=== PATIENT | female | born 1940 | race Caucasian/White ===

== ENCOUNTER 2016-10-28 08:29 | Inpatient (IN) ==
[2016-10-28] MEDS ORDERED: NITROGLYCERIN SL 0.4 MG TABLET SL ONE (09:05)
[2016-10-28] MEDS ORDERED: ENOXAPARIN 100 MG/ML SYRINGE SUBCUT STA (09:08)
[2016-10-28] MEDS ORDERED: NITROGLYCERIN SL 0.4 MG TABLET SL PRN (09:08)
[2016-10-28] MEDS ORDERED: ASPIRIN 325 MG TABLET PO STA (09:08)
[2016-10-28 09:40] LABS: Basophils # 0.1 10*3/uL (0.0-0.2); Eosinophils # 0.4 10*3/uL (0.0-0.87); Eosinophils % 6.7 % (0.00-10.9); Hematocrit 40.7 VOL% (35.7-47.0); Hemoglobin 13.1 GM/DL (12.0-16.0); Immature Granulocytes % 0.6 %; Immature Granulocytes Absolute 0.04 #; Lymphocytes # 1.1 10*3/uL (1.4-4.0); Mean Corpuscular HGB Conc 32.2 GM/DL (32-36); Mean Corpuscular Hemoglobin 30 PG (27-34); Mean Corpuscular Volume 92.7 FL (87-102); Mean Platelet Volume 10.9 FL (9.6-12.0); Monocytes # 0.6 10*3/uL (0.11-0.8); Monocytes % 8.9 % (1.7-12.7); Neutrophils # 4.3 10*3/uL (1.4-7.4); Neutrophils % 64.8 % (38.7-73.9); Platelet Count 299 T/CUMM (130-400); Red Blood Count 4.39 MC/CUMM (3.8-5.5); Red Cell Distribution Width 13.5 % (9.3-17.3); White Blood Count 6.6 T/CUMM (4-12)
--- NOTE | 2016-10-28 09:44 | XRay Report ---
XR chest 1V portable Indication: Chest pain. Comparison: None. Technique: Portable AP chest was performed. Findings: The heart size appears within normal limits. Brown elevation of the left diaphragm is demonstrated. Eventration of the right hemidiaphragm is suggested with density noted in the right cardiophrenic angle. Pulmonary vasculature demonstrates no specific abnormality. Hilar structures demonstrate fairly symmetric appearance. The lungs demonstrate coarsened interstitial markings which are nonspecific in appearance. Bones and soft tissues demonstrate no evidence of acute pathology. Impression: 1. There is no specific evidence of acute pathology. 10/28/2016 9:40 AM PROCEDURE INTERPRETED AT [facility] DEPARTMENT OF RADIOLOGY Final Report Signed by: Dr. Go Silver
[2016-10-28] MEDS ORDERED: ASPIRIN 325 MG TABLET ONE (10:02)
[2016-10-28] MEDS ORDERED: ENOXAPARIN 40 MG/0.4 ML SYRINGE ONE (10:02)
[2016-10-28 10:12] LABS: Bilirubin,Total 0.5 MG/DL (0.2-1.0); Calcium 9.5 MG/DL (8.5-10.1); Potassium 4.6 MMOL/L (3.5-5.1); Total Protein 6.7 G/DL (6.4-8.3)
[2016-10-28] MEDS ORDERED: POTASSIUM CHLORIDE 20 MEQ TABLET PO PRN (11:34)
[2016-10-28] MEDS ORDERED: MAGNESIUM SULF RIDER 4 GM in PREMIX 1 EACH IV PRN (11:34)
[2016-10-28] MEDS ORDERED: ONDANSETRON 4 MG/2 ML VIAL IV PRN (11:34)
[2016-10-28] MEDS ORDERED: MORPHINE 2 MG/1 ML SYRINGE IV PRN (11:34)
[2016-10-28] MEDS ORDERED: MAGNESIUM SULF RIDER 2 GM in PREMIX 1 EACH IV PRN (11:34)
--- NOTE | 2016-10-28 11:34 | Emergency Department Note ---
Adarsh Bautista Jamie, am scribing for, and in the presence of, Gabe Wagner MD 09:10. Bernard Bautista Doug C, MD, personally performed the services described in this documentation, ascribed by Brian Altamirano in my presence, and it is both accurate and complete . Arrival - Arrival Chief Complaint: Chest Pain Stated Complaint: Chest pains ED Nursing Triage Note: Pt c/o Chest pain (radiates through to her back and behind her ears/jaw) with some nausea started this am. Mode of Arrival: Ambulatory Limitations: No Limitations Source: Patient, RN Notes Reviewed - History of Present Illness HPI Narrative: Patient is a 75-year-old white female presents emergency room complaining of chest pain. By states this began yesterday she was eventually able to go off to sleep and when she woke up this morning that started again after she drank her coffee. By states the pain is substernal pressure that radiates to her jaws and into her back. She told with the pain started again at 615 this morning and was persisting when she arrived to the emergency room though much improved. She told me her pain was now 3 of 10 but it was 7 of 10 on this morning at 0615. She has no history of coronary artery disease but there is a family history of heart disease in her son who of a myocardial infarction. She denies any diaphoresis, nausea or vomiting. Patient states she does have significant problem with reflux. Onset (ago): hour(s) Consistency: constant Severity: moderate Allergies/Adverse Reactions: Allergies Allergy/AdvReac Type Severity Reaction Status Date / Time No Known Allergies Allergy Verified 10/28/16 08:32 Review of System - Review of System 12 point system: reviewed and no additional remarkable complaints except as stated - Review of System Constitutional: Absent: chills, diaphoresis, fever, weakness Eyes: Absent: vision change Respiratory: Absent: cough Cardiovascular: Present: chest pain Gastrointestinal: Present: nausea, vomiting. Absent: abdominal pain, diarrhea, constipation Musculoskeletal: Present: back pain (Radiates to ), other (Jaw pain). Absent: joint swelling Skin: Absent: rash, change in color Neurological: Absent: headache, weakness, numbness, confusion Hematological/Lymphatic: Absent: easy bleeding, easy bruising Medical,Surgical,& Family Hx - Medical History Cardio: History of: Hypertension, Valvular Heart Disease (Heart Murmur) - Surgical History Abdominal Surgeries: Surgical HX of: Appendectomy Reproductive Surgeries: Surgical HX of;: Hysterectomy - Family History Family History: Reports;: Family Heart Disease (Patient's son of a myocardial infarction) - Social History Smoking Status: Never smoker Exam Vital Signs: Vital Signs Temperature 97.4 F L 10/28/16 08:38 Pulse Rate 94 H 10/28/16 08:38 Respiratory Rate 18 10/28/16 09:48 Blood Pressure 220/100 10/28/16 08:38 O2 Sat by Pulse Oximetry 99 10/28/16 08:38 - General General appearance: alert, in no apparent distress - Head Head exam: Present: atraumatic, normocephalic, normal inspection - Eye Eye exam: Present: normal appearance, PERRL, EOMI - ENT ENT exam: Present: normal exam, normal oropharynx, mucous membranes moist - Neck Neck exam: Present: normal inspection, full ROM - Chest Chest inspection: Present: normal inspection, symmetric chest wall rise - Respiratory Respiratory exam: Present: normal lung sounds bilaterally. Absent: respiratory distress - Cardiovascular Cardiovascular exam: Present: regular rate, normal rhythm, murmur (3/6 systolic ejection murmur at left base) - Abdominal Exam Abdominal exam: Present: soft, normal bowel sounds - Extremities Exam Extremities exam: Present: normal inspection, full ROM - Neurological Exam Neurological exam: Present: alert, oriented X3, CN II-XII intact, reflexes normal - Psychiatric Psychiatric exam: Present: normal affect, normal mood - Skin Skin exam: Present: warm, dry, intact, normal color Course Course Narrative: Patient's clinical presentation, laboratory and radiographic findings were discussed with Dr. Yi. Patient will be admitted to the services manager account management for further evaluation. Results - Labs CBC & BMP: 10/28/16 08:59 10/28/16 08:59 Lab Results: I have reviewed the patients labs Labs: Laboratory Tests 10/28/16 08:59 Lymph % (Auto) 17.0 L Baso % (Auto) 2.0 H Lymph # (Auto) 1.1 L - EKG EKG results: interpreted by AMBERLY, sinus rhythm (94 bpm), no acute changes - Diagnostic Findings Procedure: Chest x-ray: report reviewed by me (There is no specific evidence of acute pathology. ) Disposition Clinical Impression: Unstable angina Case discussed with: patient, patient's family Disposition: Still a Patient Condition: Guarded Time of Disposition: 11:33
[2016-10-28] MEDS ORDERED: cloNIDine 0.1 MG TABLET PO PRN (14:25)
[2016-10-28] MEDS ORDERED: ALUMINUM/MAGNES/SIMETH MAX STR 30 ML UDCUP PO PRN (15:17)
[2016-10-28] MEDS: METOPROLOL TARTRATE 25 MG TABLET PO SCH ×2 (15:21→21:20)
[2016-10-28] MEDS: DEXTROSE 5% NACL 0.45% 1,000 ML IV SCH (15:24)
--- NOTE | 2016-10-28 15:28 | EKG Report ---
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
[2016-10-28] MEDS: ACETAMINOPHEN 325 MG TABLET PO PRN (15:30)
[2016-10-28] MEDS: ENOXAPARIN 40 MG/0.4 ML SYRINGE SUBCUT SCH ×2 (15:33→23:45)
[2016-10-28] MEDS ORDERED: ATORVASTATIN 20 MG TABLET PO SCH (21:00)
[2016-10-28] MEDS: BENAZEPRIL 10 MG TABLET PO SCH (21:19)
[2016-10-28] MEDS: PANTOPRAZOLE 40 MG TABLET PO SCH (21:20)
[2016-10-28] MEDS: amLODIPine 2.5 MG TABLET PO SCH (21:20)
[2016-10-29] MEDS: ACETAMINOPHEN 325 MG TABLET PO PRN ×2 (03:43→09:53)
[2016-10-29] MEDS: DEXTROSE 5% NACL 0.45% 1,000 ML IV SCH ×3 (05:23→13:25)
--- NOTE | 2016-10-29 08:34 | EKG Report ---
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 Electronically Signed On 10-29-16 11:38:48 CDT by JESÚS HOLLAND [id number]
--- NOTE | 2016-10-29 08:36 | EKG Report ---
Stationary ECG Study 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
--- NOTE | 2016-10-29 10:50 | CT Report ---
History: Chest pain, extending into left shoulder and left neck Date: 10/29/2016 Study: CT angiogram chest with IV contrast Comparison exam: No previous Spiral CT sections were obtained through the lungs following the IV administration of 80 mL of Omnipaque 350 without immediate complication. In addition to multiplanar reconstruction images, 3-D images were also generated, archived, and analyzed. The CT exam was performed using one or more of the following dose reduction techniques: Automated exposure control, adjustment of the mA and/or kV according to patient size, or use of iterative reconstruction technique. Findings: There is no focal aneurysm or dissection of the thoracic aorta. There is moderate aortic arch calcification. There is mild to moderate coronary artery calcification with involvement of the left main coronary artery. There is normal arch anatomy. There is mild less than 30% narrowing of the origins of the left common and left subclavian arteries. There is an outpouching of contrast compatible with penetrating ulcer formation anterior left lateral to the origin of the left subclavian artery, with a 6 mm x 3 mm area of contrast opacified ulcer formation. There is no discrete filling defect within the pulmonary arterial tree to suggest acute pulmonary embolic disease. There is no mediastinal mass or mediastinal lymphadenopathy otherwise. There is no pleural or pericardial effusion. There are some minimal scattered changes of centrilobular emphysema. There is no confluent infiltrate or discrete pulmonary mass. There is moderate elevation of the left hemidiaphragm, thought to be related to diaphragmatic eventration. There is no focal hernia of the left hemidiaphragm. There is a focal hernia of the right hemidiaphragm anteriorly and medially containing a small amount of protruding liver. Impression: No thoracic aortic aneurysm or dissection. 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 Agata Mcneal
[2016-10-29] MEDS ORDERED: ALPRAZolam 0.25 MG TABLET PO PRN (12:01)
[2016-10-29] MEDS: LABETALOL 20 MG/4 ML SYRINGE IV PRN (12:17)
[2016-10-29] MEDS: ENOXAPARIN 40 MG/0.4 ML SYRINGE SUBCUT SCH (13:14)
[2016-10-29] MEDS: ASPIRIN EC 81 MG TABLET PO SCH (13:43)
[2016-10-29] MEDS: PANTOPRAZOLE 40 MG TABLET PO SCH ×2 (13:43→20:34)
[2016-10-29] MEDS: METOPROLOL TARTRATE 25 MG TABLET PO SCH (13:43)
[2016-10-29] MEDS: MAGNESIUM HYDROXIDE SUSP 30 ML UDCUP PO PRN ×2 (14:10→20:34)
[2016-10-29] MEDS: amLODIPine 2.5 MG TABLET PO SCH (20:34)
[2016-10-29] MEDS: BENAZEPRIL 10 MG TABLET PO SCH (20:36)
[2016-10-29] MEDS: METOPROLOL TARTRATE 100 MG TABLET PO SCH (20:36)
[2016-10-29] MEDS: ATORVASTATIN 40 MG TABLET PO SCH (20:45)
--- NOTE | 2016-10-29 21:12 | Cardiothoracic Consult ---
Assessment and Plan - Time spent with patient Time spent with patient: Greater than 30 minutes (1) Chest pain Status: Acute Assessment and plan: 75-year-old female who was noted to have chest pain. I personally reviewed the CT scan of the chest which showed descending aortic intimal ulceration over small area distal to the origin of the left subclavian artery. There was no aneurysm noted. Extensive calcifications were noted in the descending aorta as well as the origins of the left main and the right main coronary arteries. No dissection in the ascending, arch or descending aorta. These findings were discussed with the patient and was Dr. Banegas and in regards to the aorta the management would be to follow-up with a CT angiogram of the chest in 6 months. Signs and symptoms of aortic dissection were discussed extensively with the patient and she was advised to vigilantly be aware of any change in her status. It is mandatory that the patient would get her blood pressure under control preferably below 130 systolic to prevent dissection. I will defer this management to Dr. Banegas. I also discussed the calcifications of the right and left main coronary arteries that I noted on the CT angiogram with Dr. Banegas. However since the patient does not have any EKG changes or troponin rise he feels that it is unlikely to be the source of her symptoms. I will also defer this management to Dr. Banegas. Current Visit: Yes History of Present Illness - Data of Consult Patient: new to practice Consult date: 10/29/16 Requesting Physician: Mino Banegas - Consult Narrative Reason for consult: Aortic intimal ulceration History of present illness: Ms. Everett is a 75 year old female who has been having increasing shortness of breath and over the past few days she has been having increasing substernal left -sided chest pain that has been radiating to the left shoulder. The patient however continues to be active she used to walk 6 miles a day which recently her activity decreased only to 2 miles a day. She was being followed for mild aortic insufficiency, mitral insufficiency and tricuspid insufficiency by Dr. Soni. She came to the ER with increasing chest pain for which she received a CT angiogram of the chest showing possible descending aortic intimal ulceration. The patient did not show any EKG changes neither any increase in her troponin level. Of note she denies any back pain, interscapular pain. She was noted to have hypertensive urgency while being evaluated with systolic blood pressure above 200. CC: Mino Banegas MD - Home Medications and Allergies Home Medications: Home Medications Medication Instructions Recorded Confirmed Type Aspirin EC Tab 81 mg PO DAILY 10/28/16 10/28/16 History Atorvastatin [Lipitor] 20 mg PO BEDTIME 10/28/16 10/28/16 History Benazepril HCl 20 mg PO BEDTIME 10/28/16 10/28/16 History Esomeprazole Magnesium [Nexium] 40 mg PO BID 10/28/16 10/28/16 History Pantoprazole Tab [Protonix Tab] 40 mg PO BID 10/28/16 10/28/16 History amLODIPine [Norvasc] 2.5 mg BEDTIME 10/28/16 10/28/16 History cloNIDine TAB [Catapres Tab] 0.1 mg PO DAILY PRN 10/28/16 10/28/16 History Allergies/Adverse Reactions: Allergies Allergy/AdvReac Type Severity Reaction Status Date / Time No Known Allergies Allergy Verified 10/28/16 08:32 12 point system: reviewed and no additional remarkable complaints except as stated (HPI) Medical,Surgical,& Family Hx - Medical History Cardio: History of: Hypertension, Valvular Heart Disease (Heart Murmur) Neurology: History of: Cerebral Hemorrhage Gastrointestinal: History of: GERD - Surgical History Neurologic Surgeries: Surgical HX of: Cerebral Hemorrhage Abdominal Surgeries: Surgical HX of: Appendectomy Reproductive Surgeries: Surgical HX of;: Hysterectomy (PARTIAL) - Family History Family History: Reports;: Family Cancer (MOTHER- BREAST CA), Family Heart Disease (Patient's son of a myocardial infarction) - Social History Smoking Status: Never smoker Frequency of Alcohol Use: None Type of Drug Use: None Physical Examination Vital Signs Temp Pulse Resp BP Pulse Ox 97.4 F L 94 H 18 220/100 99 10/28/16 08:38 10/28/16 08:38 10/28/16 08:38 10/28/16 08:38 10/28/16 08:38 General: Present: Appears Well HEENT: Present: PERRL Neck: Present: Supple Neck Cardiac: Present: Reg Rate and Rhythm Lungs: Present: Normal Exam Neuro: Present: Cranial Nerve 2-12 Intact Abdomen: Present: Soft, Active Bowel Sounds Skin: Present: Clear Result/EKG - Labs CBC & BMP: 10/28/16 08:59 10/28/16 08:59
[2016-10-30 05:59] LABS: Basophils # 0.1 10*3/uL (0.0-0.2); Basophils % 1.3 % (0.0-0.8); Eosinophils # 0.6 10*3/uL (0.0-0.87); Eosinophils % 8.1 % (0.00-10.9); Hematocrit 35.4 VOL% (35.7-47.0); Hemoglobin 11.2 GM/DL (12.0-16.0); Immature Granulocytes % 0.4 %; Immature Granulocytes Absolute 0.03 #; Lymphocytes # 1.2 10*3/uL (1.4-4.0); Mean Corpuscular HGB Conc 31.6 GM/DL (32-36); Mean Corpuscular Hemoglobin 29 PG (27-34); Mean Corpuscular Volume 92.7 FL (87-102); Mean Platelet Volume 10.7 FL (9.6-12.0); Monocytes # 0.8 10*3/uL (0.11-0.8); Monocytes % 11.9 % (1.7-12.7); Neutrophils # 4.2 10*3/uL (1.4-7.4); Neutrophils % 60.3 % (38.7-73.9); Platelet Count 273 T/CUMM (130-400); Red Blood Count 3.82 MC/CUMM (3.8-5.5); Red Cell Distribution Width 13.7 % (9.3-17.3); White Blood Count 6.9 T/CUMM (4-12)
[2016-10-30 06:38] LABS: Calcium 8.8 MG/DL (8.5-10.1); Magnesium 2.7 MG/DL (1.8-2.4); Osmolality,Calculated 290.7 MOS/KG (273-304); Potassium 4.6 MMOL/L (3.5-5.1)
[2016-10-30] MEDS: LABETALOL 20 MG/4 ML SYRINGE IV PRN (06:41)
[2016-10-30] MEDS: MAGNESIUM HYDROXIDE SUSP 30 ML UDCUP PO PRN (08:16)
[2016-10-30] MEDS: ASPIRIN EC 81 MG TABLET PO SCH (08:16)
[2016-10-30] MEDS: PANTOPRAZOLE 40 MG TABLET PO SCH ×2 (08:16→20:49)
[2016-10-30] MEDS: METOPROLOL TARTRATE 100 MG TABLET PO SCH ×2 (08:16→20:49)
[2016-10-30] MEDS: hydrALAZINE 25 MG TABLET PO SCH ×3 (09:10→20:47)
[2016-10-30] MEDS: ACETAMINOPHEN 325 MG TABLET PO PRN ×2 (11:43→20:58)
--- NOTE | 2016-10-30 12:34 | Cardiology History & Physical ---
Nikolas Bautista April RN, am scribing for, and in the presence of, Mino Banegas MD 12 :34. Assessment and Plan - Time spent with patient Time spent with patient: Greater than 30 minutes (Assessment, planning, documentation, medication review) (1) Chest pain Status: Acute Assessment and plan: This is a late note, as the EMR did not save my admission note from yesterday. 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 Thoracic surgery consult recommended medical management. She did not have ACS, despite blood pressure up to 220, although has severe coronary calcifications on CT scan. -We will continue strict blood pressure control, monitor in the ICU. 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 Everett is a 75 year old female who is routinely followed by Dr. Soni with history of heart murmur, hypertension, and dyslipidemia. Echo done March 28, 2016 with ejection fraction 65%, 1+ mitral regurgitation, 1+ aortic regurgitation, and 1-2+ tricuspid regurgitation. Surgical history includes bilateral cataracts, appendectomy, and hysterectomy. Family history significant for father with CVA, mother with cancer hypertension, and son who of an NC. She reports she does not smoke, stating she quit about 30 years ago. She lives at home with her and is very active, walking 6-12 miles a day. Ms. Everett tells me for the last 5-6 days she has been more tired than usual. 2 days ago she woke up and walk 6 miles and then ate breakfast. After breakfast she had planned to walk 4 miles but she became more fatigued so she only walked 2 miles. The same morning she began having chest pain that she describes as an ache and burning across her chest to her left shoulder and up into her neck. She reports the pain comes and goes. Yesterday morning she woke up feeling fine and developed this pain after getting up. Yesterday she did not walk because she did not feel well. She does not think the pain is associated with her walking. She rates the pain yesterday as a 3 or 4 on a scale of 1-10. She said it was relieved by the time skin to the emergency department, she thinks it was relieved with Advil. She does report the last several days that she has belched a lot, but did not notice this relieving the pain. She denies any associated shortness of breath, diaphoresis, nausea and vomiting with the pain. She saw Dr. Soni in the office on September 27 of this year and was reporting some left-sided chest pain that was a burning pain at that time. She says the pain this weekend has been different from that, but she cannot tell me how. Currently she is sitting up in chair in no acute distress and is pain-free. EKG showed sinus rhythm with heart rate of 82. manager research development currently shows sinus rhythm with heart rates in the 60s. O2 sat is 97% on room air. Troponin has been negative 3, labs are unremarkable. Home Medications Medication Instructions Recorded Confirmed Type Aspirin EC Tab 81 mg PO DAILY 10/28/16 10/28/16 History Atorvastatin [Lipitor] 20 mg PO BEDTIME 10/28/16 10/28/16 History Benazepril HCl 20 mg PO BEDTIME 10/28/16 10/28/16 History Esomeprazole Magnesium [Nexium] 40 mg PO BID 10/28/16 10/28/16 History Pantoprazole Tab [Protonix Tab] 40 mg PO BID 10/28/16 10/28/16 History amLODIPine [Norvasc] 2.5 mg BEDTIME 10/28/16 10/28/16 History cloNIDine TAB [Catapres Tab] 0.1 mg PO DAILY PRN 10/28/16 10/28/16 History Allergies Allergy/AdvReac Type Severity Reaction Status Date / Time No Known Allergies Allergy Verified 10/28/16 08:32 - Constitutional Constitutional: Present: as per HPI - EENT Eyes: Present: requires corrective lense Ears: Absent: decreased hearing, ear pain, tinnitus Nose, mouth and throat: Present: headache(s). Absent: dysphagia, epistaxis, neck pain, sore throat - Cardiovascular Cardiovascular: Present: chest pain at rest, chest pain with activity, radiating jaw, neck or arm pain, lightheadedness, palpitations. Absent: diaphoresis, dyspnea, dyspnea on exertion, edema, orthopnea - Respiratory Respiratory: Absent: cough, dyspnea, hemoptysis, dyspnea on exertion, wheezing - Gastrointestinal Gastrointestinal: Present: constipation. Absent: abdominal pain, diarrhea, hematemesis, hematochezia, melena, nausea, vomiting - Genitourinary Genitourinary: Absent: dysuria, hematuria - Musculoskeletal Musculoskeletal: Present: limited range of motion. Absent: back pain - Neurological Neurological: Present: dizziness, headache(s). Absent: abnormal gait, abnormal speech, frequent falls, syncope - Psychiatric Psychiatric: Absent: anxiety, depression - Endocrine Endocrine: Present: fatigue - Hematologic/Lymphatic Hematologic/Lymphatic: Present: easy bruising Medical,Surgical,& Family Hx - Medical History Cardio: History of: Hypertension, Valvular Heart Disease (Heart Murmur) Neurology: History of: Cerebral Hemorrhage Gastrointestinal: History of: GERD - Surgical History Neurologic Surgeries: Surgical HX of: Cerebral Hemorrhage Abdominal Surgeries: Surgical HX of: Appendectomy Reproductive Surgeries: Surgical HX of;: Hysterectomy (PARTIAL) - Family History Family History: Reports;: Family Cancer (MOTHER- BREAST CA), Family Heart Disease (Patient's son of a myocardial infarction), Family Stroke (Father) - Social History Smoking Status: Former smoker (Quit 30 years ago) Have you smoked in the last 12 months: No Frequency of Alcohol Use: None Type of Drug Use: None Marital Status: Lives With:: Spouse Functional capacity: independent ambulation Cardiology Physical Exam - Constitutional Vitals: Vital Signs Temp Pulse Resp BP Pulse Ox 97.8 F 63 20 146/65 97 10/29/16 08:00 10/29/16 08:00 10/29/16 08:00 10/29/16 08:00 10/29/16 08:00 Intake and Output 10/28/16 10/29/16 10/29/16 22:59 06:59 14:59 Intake Total 400 / 400 0 / 0 Balance 400 / 400 0 / 0 Intake: Oral 400 / 400 0 / 0 Other: # Voids 2 2 Weight 99 lb General appearance: normal weight, no acute distress - Head Head exam: Absent: abrasion, contusion, laceration - Eye Eye exam: Present: EOMI Pupils: Present: DEBO - Neck Neck exam: Absent: tenderness - Respiratory Respiratory exam: Present: clear to auscultation bilaterally. Absent: chest wall tenderness, decreased breath sounds - Cardiovascular Cardiovascular exam: Present: regular rate and rhythm, systolic murmur. Absent : carotid bruit - GI/Abdominal GI/Abdominal exam: Present: normal bowel sounds, soft. Absent: distended - Back Exam Back exam: Absent: muscle spasm, vertebral tenderness - Neurological Exam Neurological exam: Present: alert, oriented X3 - Psychiatric Psychiatric exam: Present: normal affect, normal mood - Skin Skin exam: Present: warm, dry Result/EKG - Labs CBC & BMP: 10/30/16 04:52 10/30/16 04:52 Lab Results: I have reviewed the past 24 hour labs Labs: Laboratory Results - last 24 hr 10/28/16 10/28/16 12:45 15:07 Troponin I < 0.015 < 0.015 - EKG EKG results: interpreted by me EKG shows: sinus rhythm Bassam Bautista Attila, MD, personally performed the services described in this documentation, ascribed by Jessica Connor RN in my presence, and it is both accurate and complete .
--- NOTE | 2016-10-30 12:36 | Cardiology Progress Note ---
Nikolas Bautista April RN, am scribing for, and in the presence of, Mino Banegas MD 12 :32. 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 Hypertensive urgency, hyperlipidemia, CAD. -Continue metoprolol 100 mg twice daily, increase amlodipine to 10 mg daily. -Continue benazepril. -Continue aspirin. -Continue high-dose statin. -If blood pressure remains well controlled, transfer to telemetry. 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 Everett is seen today housed in the intensive care unit. She is sitting up in chair eating breakfast in no acute distress. She reports having some chest pain/burning sensation off and on throughout the night. She denies shortness of breath, palpitations, or dizziness. She was seen yesterday in consultation by Dr. Watson regarding aortic ulceration found on CTA of the chest. He thought it did not require surgical intervention and recommended she be medically managed and follow-up with CT angiogram of the chest in 6 months. She is currently on Lotensin 20 mg p.o. nightly, Lopressor 100 mg p.o. twice daily, and Norvasc 2.5 mg p.o. nightly. She is also requiring the use of labetalol IV as needed. Blood pressure this morning was 195/79, she was given labetalol IV, current blood pressure 168/79. monitoring and evaluation advisor currently shows sinus rhythm heart rates in the 70s, O2 sat 100% on room air. Exam (Progress Note) - Constitutional Vitals: Period Temp Pulse Resp BP Sys/Wells Pulse Ox Last 24 Hr 98.0 F-98.3 F 60-85 12-25 115-209/52-84 96-99 General appearance: no acute distress, under weight - Head Head exam: Absent: abrasion, hematoma - Eye Eye exam: Absent: periorbital swelling, laceration to eyelids - Respiratory Respiratory exam: Present: clear to auscultation bilaterally. Absent: accessory muscle use, chest wall tenderness - Cardiovascular Cardiovascular exam: Present: regular rate and rhythm, systolic murmur - GI/Abdominal GI/Abdominal exam: Present: normal bowel sounds, soft. Absent: distended, tenderness - Extremities Exam Extremities exam: Absent: edema - Neurological Exam Neurological exam: Present: alert, oriented X3 - Psychiatric Psychiatric exam: Present: normal affect, normal mood - Skin Skin exam: Present: warm, dry Result/EKG - Labs CBC & BMP: 10/30/16 04:52 10/30/16 04:52 Lab Results: I have reviewed the past 24 hour labs Labs: Laboratory Results - last 24 hr 10/30/16 10/30/16 04:52 04:52 WBC 6.9 RBC 3.82 Hgb 11.2 L Hct 35.4 L MCV 92.7 MCH 29 MCHC 31.6 L RDW 13.7 Plt Count 273 MPV 10.7 Neut % (Auto) 60.3 Lymph % (Auto) 18.0 L [place] % (Auto) 11.9 Eos % (Auto) 8.1 Baso % (Auto) 1.3 H Neut # (Auto) 4.2 Lymph # (Auto) 1.2 L [place] # (Auto) 0.8 Eos # (Auto) 0.6 Baso # (Auto) 0.1 Immature Gran % 0.4 Nucleated RBC % 0.0 Immature Gran # 0.03 Nucleated RBCs # 0.00 Sodium 145 Potassium 4.6 Chloride 108 H Carbon Dioxide 30 Anion Gap 11.6 BUN 22 H Creatinine 0.90 GFR Calculation 49 BUN/Creatinine Ratio 24.00 H Glucose 90 Calculated Osmolality 290.7 Calcium 8.8 Magnesium 2.7 H - EKG EKG results: interpreted by me EKG shows: sinus rhythm Bassam Bautista Attila, MD, personally performed the services described in this documentation, ascribed by Jessica Connor RN in my presence, and it is both accurate and complete .
[2016-10-30] MEDS: amLODIPine 10 MG TABLET PO SCH (13:20)
[2016-10-30] MEDS: LACTULOSE 20 GM/30 ML UDCUP PO PRN (20:47)
[2016-10-30] MEDS: BENAZEPRIL 10 MG TABLET PO SCH (20:48)
[2016-10-30] MEDS: ATORVASTATIN 40 MG TABLET PO SCH (20:49)
[2016-10-31 06:15] LABS: Basophils # 0.1 10*3/uL (0.0-0.2); Basophils % 1.5 % (0.0-0.8); Eosinophils # 0.5 10*3/uL (0.0-0.87); Eosinophils % 7.6 % (0.00-10.9); Hematocrit 37.4 VOL% (35.7-47.0); Hemoglobin 11.9 GM/DL (12.0-16.0); Immature Granulocytes % 0.3 %; Immature Granulocytes Absolute 0.02 #; Lymphocytes # 1.2 10*3/uL (1.4-4.0); Lymphocytes % 18.3 % (21.3-54.2); Mean Corpuscular HGB Conc 31.8 GM/DL (32-36); Mean Corpuscular Hemoglobin 30 PG (27-34); Mean Platelet Volume 11.8 FL (9.6-12.0); Monocytes # 0.7 10*3/uL (0.11-0.8); Monocytes % 10.4 % (1.7-12.7); Neutrophils # 4.1 10*3/uL (1.4-7.4); Neutrophils % 61.9 % (38.7-73.9); Platelet Count 166 T/CUMM (130-400); Red Blood Count 4.02 MC/CUMM (3.8-5.5); Red Cell Distribution Width 13.9 % (9.3-17.3); White Blood Count 6.6 T/CUMM (4-12)
[2016-10-31 06:39] LABS: Calcium 9.1 MG/DL (8.5-10.1); Magnesium 2.5 MG/DL (1.8-2.4); Osmolality,Calculated 287.8 MOS/KG (273-304); Potassium 4.7 MMOL/L (3.5-5.1)
[2016-10-31 06:49] LABS: Hypochromasia 1+
[2016-10-31 06:50] LABS: Ovalocytes Slight; Platelet Estimate Normal
[2016-10-31] MEDS: amLODIPine 10 MG TABLET PO SCH (10:33)
[2016-10-31] MEDS: ASPIRIN EC 81 MG TABLET PO SCH (10:34)
[2016-10-31] MEDS: hydrALAZINE 25 MG TABLET PO SCH ×3 (10:34→20:28)
[2016-10-31] MEDS: PANTOPRAZOLE 40 MG TABLET PO SCH ×2 (10:34→20:28)
[2016-10-31] MEDS: METOPROLOL TARTRATE 100 MG TABLET PO SCH ×2 (10:34→20:28)
[2016-10-31] MEDS: ACETAMINOPHEN 325 MG TABLET PO PRN ×2 (10:42→16:28)
[2016-10-31] MEDS ORDERED: BENAZEPRIL 40 MG TABLET PO SCH (18:03)
--- NOTE | 2016-10-31 18:07 | Cardiology Progress Note ---
Nikolas Bautista April RN, am scribing for, and in the presence of, Mino Banegas MD 18 :04. 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 Hypertensive urgency, hyperlipidemia, CAD. -Continue metoprolol 100 mg twice daily, amlodipine to 10 mg daily. Increase benazepril to 40 mg daily. -If able, plan to wean off hydralazine, she may have severe CAD, based on amount of calcification on CT scan. -Continue aspirin. -Continue high-dose statin. -Xanax as needed for anxiety. -Blood pressure better controlled, but still elevated. -Chest pain resolved. If stable, discharge home tomorrow, follow-up with Dr. Soni in 1 week. She also requested second opinion for cardiothoracic surgical evaluation, will need to follow-up with Dr. Acosta. -We had a long discussion again about her cardiovascular pathology, need for intensive risk factor modification. 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 Everett is seen today housed on the telemetry unit. She is sitting up in chair in no acute distress. She continues to have some back and shoulder pain off and on. She denies shortness of breath, palpitations, or dizziness. She is very anxious about her new diagnosis and has been questions. Dr. Banegas spoke with her extensively about her aortic ulceration and answered all her questions. Her blood pressure was better during the night, but late this morning it was 171/75. She has been very anxious this morning and the blood pressure pressure could be due to her anxiety. Labs today are unremarkable. 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 If pressure remains stable she can be discharged home tomorrow. She would like a follow-up appointment to see Dr. Acosta for a second opinion, this will be scheduled. We will schedule an appointment for her to see Dr. Soni in the office next week. Exam (Progress Note) - Constitutional Vitals: Period Temp Pulse Resp BP Sys/Wells Pulse Ox Last 24 Hr 97.3 F-98.6 F 62-78 15-25 119-171/54-75 95-99 Exam: General appearance: no acute distress, under weight - Head Head exam: Absent: abrasion, hematoma - Eye Eye exam: Absent: periorbital swelling, laceration to eyelids - Respiratory Respiratory exam: Present: clear to auscultation bilaterally. Absent: accessory muscle use, chest wall tenderness - Cardiovascular Cardiovascular exam: Present: regular rate and rhythm, systolic murmur - GI/Abdominal GI/Abdominal exam: Present: normal bowel sounds, soft. Absent: distended, tenderness - Extremities Exam Extremities exam: Absent: edema - Neurological Exam Neurological exam: Present: alert, oriented X3 - Psychiatric Psychiatric exam: Present: normal affect, normal mood - Skin Skin exam: Present: warm, dry Result/EKG - Labs CBC & BMP: 10/31/16 05:33 10/31/16 05:33 Lab Results: I have reviewed the past 24 hour labs Labs: Laboratory Results - last 24 hr 10/31/16 10/31/16 05:33 05:33 WBC 6.6 RBC 4.02 Hgb 11.9 L Hct 37.4 MCV 93.0 MCH 30 MCHC 31.8 L RDW 13.9 Plt Count 166 D MPV 11.8 Neut % (Auto) 61.9 Lymph % (Auto) 18.3 L [place] % (Auto) 10.4 Eos % (Auto) 7.6 Baso % (Auto) 1.5 H Neut # (Auto) 4.1 Lymph # (Auto) 1.2 L [place] # (Auto) 0.7 Eos # (Auto) 0.5 Baso # (Auto) 0.1 Immature Gran % 0.3 Nucleated RBC % 0.0 Immature Gran # 0.02 Nucleated RBCs # 0.00 Platelet Estimate Normal Hypochromasia 1+ Ovalocytes Slight Morphology Comment Sodium 144 Potassium 4.7 Chloride 109 H Carbon Dioxide 25 Anion Gap 14.7 BUN 18 Creatinine 0.90 GFR Calculation 49 BUN/Creatinine Ratio 20.00 Glucose 91 Calculated Osmolality 287.8 Calcium 9.1 Magnesium 2.5 H - EKG EKG results: interpreted by me EKG shows: sinus rhythm Specialty Discharge - Follow Up or Referrals Follow up with: Farhat Acosta MD [Physician] - 11/06/16 9:30 am I, Mino Banegas MD, personally performed the services described in this documentation, ascribed by Jessica Connor RN in my presence, and it is both accurate and complete 807 .
[2016-10-31] MEDS: LACTULOSE 20 GM/30 ML UDCUP PO PRN (19:00)
[2016-10-31] MEDS: ATORVASTATIN 40 MG TABLET PO SCH (20:28)
[2016-11-01 06:46] LABS: Basophils # 0.1 10*3/uL (0.0-0.2); Basophils % 1.3 % (0.0-0.8); Eosinophils # 0.6 10*3/uL (0.0-0.87); Eosinophils % 7.9 % (0.00-10.9); Hematocrit 36.4 VOL% (35.7-47.0); Hemoglobin 11.7 GM/DL (12.0-16.0); Immature Granulocytes % 0.9 %; Immature Granulocytes Absolute 0.07 #; Lymphocytes # 1.6 10*3/uL (1.4-4.0); Lymphocytes % 20.8 % (21.3-54.2); Mean Corpuscular HGB Conc 32.1 GM/DL (32-36); Mean Corpuscular Hemoglobin 30 PG (27-34); Mean Corpuscular Volume 94.1 FL (87-102); Mean Platelet Volume 10.4 FL (9.6-12.0); Monocytes # 0.8 10*3/uL (0.11-0.8); Monocytes % 10.8 % (1.7-12.7); Neutrophils # 4.5 10*3/uL (1.4-7.4); Neutrophils % 58.3 % (38.7-73.9); Platelet Count 271 T/CUMM (130-400); Red Blood Count 3.87 MC/CUMM (3.8-5.5); Red Cell Distribution Width 13.5 % (9.3-17.3); White Blood Count 7.7 T/CUMM (4-12)
[2016-11-01 07:52] LABS: Calcium 9.1 MG/DL (8.5-10.1); Magnesium 2.3 MG/DL (1.8-2.4)
[2016-11-01] MEDS: ACETAMINOPHEN 325 MG TABLET PO PRN (09:48)
[2016-11-01] MEDS: PANTOPRAZOLE 40 MG TABLET PO SCH (09:48)
[2016-11-01] MEDS: amLODIPine 10 MG TABLET PO SCH (09:48)
[2016-11-01] MEDS: ASPIRIN EC 81 MG TABLET PO SCH (09:49)
[2016-11-01] MEDS: METOPROLOL TARTRATE 100 MG TABLET PO SCH (09:49)
[2016-11-01] MEDS: hydrALAZINE 25 MG TABLET PO SCH (09:49)
[2016-11-01 11:32] VITALS: BP 127/58
--- NOTE | 2016-11-01 12:18 | Discharge Summary ---
Addendum entered and electronically signed by Mino Banegas MD 11/01/16 12:02: Interviewed and examined the patient personally. Discussed findings with the nurse practitioner. I agree with the assessment and plan, with additions as below. Patient was admitted with chest pain, hypertensive emergency, was diagnosed with a penetrating aortic ulcer. She also has severe coronary calcification on the CT scan. She did not have cardiac injury. Blood pressure regimen was adjusted, CT surgery consult recommended conservative management. 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 Beltran next week. Recheck BMP/ magnesium in 1 week. We had a long discussion about risk factor modification. Given her severe coronary calcification, ischemic evaluation may be pursued, once her blood pressure control is stable. Original Note: Nikolas Bautista April, RN, am scribing for, and in the presence of, Marlin Sosa NP 09:10. Hospital Course - Hospital Course Hospital Course: Ms. Everett is a 75 year old female who is routinely followed by Dr. Soni with history of heart murmur, hypertension, and dyslipidemia. Echo done March 28, 2016 with ejection fraction 65%, 1+ mitral regurgitation, 1+ aortic regurgitation, and 1-2+ tricuspid regurgitation. Surgical history includes bilateral cataracts, appendectomy, and hysterectomy. Family history significant for father with CVA, mother with cancer and hypertension, and son who of an LA. She reports she does not smoke, stating she quit about 30 years ago. She lives at home with her and is very active, walking 6-12 miles a day. She presented to the hospital with complaints of being more tired than usual for about a week and 2 day onset of chest pain that she described as an aching/ burning sensation across her chest to her left shoulder and into her neck. She did not have any EKG changes or elevation in her troponin. CTA of the chest showed penetrating aortic ulcer. Dr. Watson saw the patient in consultation. He did not think she had a surgical intervention and recommended medical management as well as follow-up with a CT angiogram of the chest in 6 months. She was very hypertensive when she came in with blood pressure 220/ 100. We have adjusted her medications for optimal blood pressure control. Her blood pressure today are much better, and she has not required any IV labetalol in more than 48 hours. She has also been very anxious with this new diagnosis and we have added Xanax as needed. She continues to have some pain across her left shoulder, reports this is slightly better. She denies any shortness of breath, palpitations, or dizziness. Her blood pressures throughout the night have been much better, is 137/51 this morning. monitoring specialist currently shows sinus rhythm with heart rates in the 60s. Labs are unremarkable. We will recheck a BMP and mag with Dr. Soni next week since we are sending her home on hydralazine. Ms. Everett has reached maximum benefit from hospitalization and will be discharged home today. We will schedule her to see Dr. Soni next week with a BMP and mag. She has requested a second surgical opinion from Dr. Acosta. He is on vacation this week so we will get an appointment scheduled for her to see him next week. We have discussed with patient the importance of blood pressure and cholesterol control in the presence of this ulcer. We discussed the changes in her medicine which include the following: Increased benazepril to 40 mg nightly Added Xanax 0.25 every 6 hours as needed Added Lopressor 100 p.o. twice daily Increased amlodipine to 10 mg daily Added hydralazine 25 mg 3 times daily Increased Lipitor to 40 mg nightly Added Nitrostat 0.4 sublingual as needed chest pain She will continue her home dosage of baby aspirin and Protonix - Time spent with patient Time with patient DS: Greater than 30 minutes Diagnosis - Discharge Diagnosis (1) Chest pain Status: Acute (2) Hypertension Status: Chronic (3) Dyslipidemia Status: Chronic (4) Heart murmur, systolic Status: Chronic Specialty Discharge - Follow Up or Referrals Follow up with: Farhat Acosta MD [Physician] - 11/06/16 9:30 am Robin Soni MD [Physician] - 1 Week (BMP Mag) Discharge Plan - Discharge Data Disposition: Disch To Home/Self Care Condition at Discharge: Stable Discharge Diet: heart healthy Activity: increase activity as tolerated Hygiene: no restrictions Weight Bearing at Discharge: weight bear as tolerated Driving: no restrictions Contact your physician if you experience:: fever over 101, Difficulty voiding, Redness or swelling, Nausea/Vomiting, Shortness of breath, Bleeding, pain uncontrolled by pain medications - Discharge Medications New Benazepril [Lotensin] 40 mg PO BEDTIME #90 tablet Metoprolol Tartrate Tab [Lopressor Tab] 100 mg PO BID #180 tablet Nitroglycerin Sl Tab [Nitrostat] 0.4 mg SL Q5M PRN #25 tablet PRN Reason: Chest Pain amLODIPine [Norvasc] 10 mg PO DAILY #90 tablet hydrALAZINE TAB [Apresoline Tab] 25 mg PO TID #90 tablet ALPRAZolam [Xanax] 0.25 mg PO Q6H PRN #30 tablet PRN Reason: Anxiety Atorvastatin [Lipitor] 40 mg PO BEDTIME #90 tablet Continue Aspirin EC Tab 81 mg PO DAILY Pantoprazole Tab [Protonix Tab] 40 mg PO BID Discontinued cloNIDine TAB [Catapres Tab] 0.1 mg PO DAILY PRN PRN Reason: systole>170 Esomeprazole Magnesium [Nexium] 40 mg PO BID Atorvastatin [Lipitor] 20 mg PO BEDTIME Benazepril HCl 20 mg PO BEDTIME amLODIPine [Norvasc] 2.5 mg BEDTIME - Follow Up or Referral Follow Up: Farhat Acosta MD [Physician] - 11/06/16 9:30 am Robin Soni MD [Physician] - 1 Week (BMP Mag) - Forms/Instructions Exam - Constitutional Vitals: Period Temp Pulse Resp BP Sys/Wells Pulse Ox Last 24 Hr 97.4 F-98.2 F 60-74 16-20 106-171/43-75 95-98 General appearance: no acute distress, under weight - Head Head exam: Absent: abrasion, hematoma - Eye Eye exam: Absent: periorbital swelling, laceration to eyelids - Neck Neck exam: Absent: tenderness - Respiratory Respiratory exam: Present: clear to auscultation bilaterally. Absent: accessory muscle use, chest wall tenderness - Cardiovascular Cardiovascular exam: Present: regular rate and rhythm, systolic murmur - GI/Abdominal GI/Abdominal exam: Present: normal bowel sounds, soft. Absent: distended, tenderness - Extremities Exam Extremities exam: Absent: calf tenderness, edema - Neurological Exam Neurological exam: Present: alert, oriented X3 - Psychiatric Psychiatric exam: Present: normal affect, anxious - Skin Skin exam: Present: warm, dry Discharge Results Procedures and tests throughout hospitalization: Pending Orders 11/02/16 04:00 BMP w/ Mg [Basic Metabolic Panel w/Mg] IN AM CBC [Comp Blood Count Auto Diff] IN AM Labs on day of discharge: Labs from last 24 hours 11/01/16 11/01/16 06:59 04:00 WBC 7.7 RBC 3.87 Hgb 11.7 L Hct 36.4 MCV 94.1 MCH 30 MCHC 32.1 RDW 13.5 Plt Count 271 D MPV 10.4 Neut % (Auto) 58.3 Lymph % (Auto) 20.8 L [place] % (Auto) 10.8 Eos % (Auto) 7.9 Baso % (Auto) 1.3 H Neut # (Auto) 4.5 Lymph # (Auto) 1.6 [place] # (Auto) 0.8 Eos # (Auto) 0.6 Baso # (Auto) 0.1 Immature Gran % 0.9 Nucleated RBC % 0.0 Immature Gran # 0.07 Nucleated RBCs # 0.00 Sodium 143 Potassium 5.0 Chloride 107 Carbon Dioxide 30 Anion Gap 11.0 BUN 28 H Creatinine 1.20 H GFR Calculation 35 BUN/Creatinine Ratio 23.00 H Glucose 93 Calculated Osmolality 290.0 Calcium 9.1 Magnesium 2.3 - Imaging and Cardiology Procedure: Chest x-ray: report reviewed by me, CT - chest: report reviewed by me DS: Provider Consults: 10/29/16 11:34 Consult to Physician [CONS] Routine Comment: penetrating aortic ulcer Consulting Provider: [facility] Consulting Provider Notified: Yes Consult to Specialist Group: Surgery Person Notified: JUAN ANTONIO Date Notified: 10/29/16 Time Notified: 13:15 Expected date of discharge: 11/01/16 Sheila Bautista Bonnie E, NP, personally performed the services described in this documentation, ascribed by Jessica Connor RN in my presence, and it is both accurate and complete 910 .
== END 2016-11-01 13:11 | disposition home or self-care (01) | DRG 300 ==
LOC: N.EDINP 08:29 → N.ED 08:29 → N.TELES 12:05 → N.ICU 10-29 13:10 → N.TELES 10-31 03:14
PROVIDERS: ADMIT Internal Medicine Cardiovascular Disease; ATTEND Internal Medicine Clinical Cardiac Electrophysiology

== ENCOUNTER 2017-09-11 07:45 | Inpatient (IN) ==
[~2017-09-11 07:45] MED LIST: CLORAZEPATE 3.75 MG TABLET PO PRN; DEXTROSE 50% 25 GM/50 ML VIAL IV PRN; GLUCAGON 1 MG VIAL IM PRN; NITROGLYCERIN SL 0.4 MG TABLET SL PRN
[2017-09-11] MEDS: CHLORHEXIDINE 0.12% ORAL RINSE 60 ML BOTTLE SWISH/SPIT SCH ×3 (09:17→21:42)
[2017-09-11 09:41] LABS: Basophils # 0.1 10*3/uL (0.0-0.2); Basophils % 1.1 % (0.0-0.8); Eosinophils # 0.7 10*3/uL (0.0-0.87); Eosinophils % 6.1 % (0.00-10.9); Hematocrit 38.8 VOL% (35.7-47.0); Hemoglobin 12.6 GM/DL (12.0-16.0); Immature Granulocytes Absolute 0.11 #; Lymphocytes # 2.1 10*3/uL (1.4-4.0); Lymphocytes % 18.6 % (21.3-54.2); Mean Corpuscular HGB Conc 32.5 GM/DL (32-36); Mean Corpuscular Hemoglobin 30 PG (27-34); Mean Corpuscular Volume 90.9 FL (87-102); Mean Platelet Volume 10.2 FL (9.6-12.0); Monocytes # 1.2 10*3/uL (0.11-0.8); Monocytes % 10.7 % (1.7-12.7); Neutrophils # 7.1 10*3/uL (1.4-7.4); Neutrophils % 62.5 % (38.7-73.9); Platelet Count 360 T/CUMM (130-400); Red Blood Count 4.27 MC/CUMM (3.8-5.5); Red Cell Distribution Width 14.1 % (9.3-17.3); White Blood Count 11.4 T/CUMM (4-12)
[2017-09-11] MEDS ORDERED: CEFUROXIME INJ 1,500 MG in SYRINGE 1 EACH IV ONE (09:49)
[2017-09-11 10:04] LABS: Bilirubin,Total 0.8 MG/DL (0.2-1.0); Calcium 9.3 MG/DL (8.5-10.1); Osmolality,Calculated 287.1 MOS/KG (273-304); Potassium 5.1 MMOL/L (3.5-5.1); Total Protein 6.8 G/DL (6.4-8.3)
[2017-09-11 15:04] LABS: ABG Base Excess -1.3 MMOL/L (-2.5-2.5); ABG HCO3 23.3 MMOL/L (20-26); ABG Oxygen Saturation 96.8 % (95-100); ABG PCO2 41.3 MM HG (35-48); ABG PH 7.371 (7.35-7.45); ABG TCO2 21.4 MMOL/L (23-27)
[2017-09-11] MEDS: SODIUM CHLORIDE 0.9% 1,000 ML IV SCH ×2 (15:52→19:17)
[2017-09-11] MEDS: cloNIDine 0.1 MG TABLET PO SCH ×2 (15:53→20:11)
[2017-09-11] MEDS: BENAZEPRIL 40 MG TABLET PO SCH ×2 (15:53→20:10)
[2017-09-11] MEDS: PANTOPRAZOLE 40 MG TABLET PO SCH ×3 (15:54→20:11)
[2017-09-11] MEDS: SERTRALINE 25 MG TABLET PO SCH ×2 (16:26→20:16)
[2017-09-11] MEDS: ATORVASTATIN 20 MG TABLET PO SCH (16:26)
[2017-09-11] MEDS: amLODIPine 5 MG TABLET PO SCH (16:26)
[2017-09-11] MEDS: SENNA 8.6 MG TABLET PO SCH ×2 (16:26→20:10)
[2017-09-11] MEDS: ASPIRIN CHEW 81 MG TABLET PO SCH (16:26)
[2017-09-11] MEDS: CHLORHEXIDINE 4% SOLN 118 ML BOTTLE TOP SCH ×2 (19:16→20:15)
[2017-09-12] MEDS ORDERED: PAPAVERINE 60 MG/2 ML VIAL ONE (05:21)
[2017-09-12] MEDS ORDERED: VANCOMYCIN 1,000 MG VIAL ONE (05:22)
[2017-09-12] MEDS ORDERED: FAMOTIDINE 20 MG TABLET PO ONE (05:30)
[2017-09-12] MEDS ORDERED: DIAZEPAM 5 MG TABLET PO ONE (05:30)
[2017-09-12] MEDS ORDERED: PHENYLEPHRINE DRIP 20 MG/250 ML PREMIX IV ONE (05:42)
[2017-09-12] MEDS ORDERED: HEPARIN/NACL 0.9% 2 UNITS/ML 500 ML IV ONE (05:42)
[2017-09-12] MEDS ORDERED: MIDAZOLAM 10 MG/2 ML VIAL ONE ×2 (05:42→05:43)
[2017-09-12] MEDS ORDERED: SUFentanil 250 MCG/5 ML AMP ONE (05:42)
[2017-09-12] MEDS ORDERED: CALCIUM CHLORIDE 1,000 MG/10 ML VIAL IV ONE (05:42)
[2017-09-12] MEDS ORDERED: NITROGLYCERIN DRIP 50 MG/250 ML BOTTLE IV ONE (05:43)
[2017-09-12] MEDS ORDERED: LACTATED RINGERS 1,000 ML IV ONE (05:43)
[2017-09-12] MEDS ORDERED: ETOMIDATE 40 MG/20 ML VIAL IV ONE (05:43)
[2017-09-12] MEDS ORDERED: TRANEXAMIC ACID 1,000 MG/10 ML VIAL IV ONE (05:43)
[2017-09-12] MEDS ORDERED: SODIUM CHLORIDE 0.9% 1,000 ML IV ONE (05:43)
[2017-09-12] MEDS ORDERED: ePHEDrine 50 MG/ML AMP ONE (05:43)
[2017-09-12] MEDS ORDERED: VECURONIUM 10 MG VIAL IV ONE (05:43)
[2017-09-12] MEDS ORDERED: PHENYLEPHRINE 10 MG/1 ML VIAL IV ONE (05:44)
[2017-09-12] MEDS: CHLORHEXIDINE 4% SOLN 118 ML BOTTLE TOP SCH ×2 (06:04→08:41)
[2017-09-12] MEDS ORDERED: PHENYLEPHRINE DRIP 40 MG/250 ML PREMIX IV ONE (07:35)
[2017-09-12] MEDS ORDERED: NITROPRUSSIDE 50 MG/2 ML VIAL ONE (07:35)
[2017-09-12] MEDS ORDERED: CALCIUM CHLORIDE 1,000 MG/10 ML SYRINGE IV ONE (07:36)
[2017-09-12] MEDS ORDERED: POTASSIUM CHLORIDE RIDER 100 ML IV ONE (07:36)
[2017-09-12 08:12] LABS: ABG Base Excess 1.8 MMOL/L (-2.5-2.5); ABG HCO3 26.1 MMOL/L (20-26); ABG PCO2 39.9 MM HG (35-48); ABG PH 7.426 (7.35-7.45); ABG TCO2 23.6 MMOL/L (23-27); Glucose Heart Surgery 101 MG/DL (74-106); Hematocrit Heart Surgery 33.2 PERCENT (37-47); Hemoglobin Heart Surgery 10.8 G/DL (12.0-16.0); Ionized Calcium Arterial 1.19 MMOL/L (1.21-1.46); PCO2 Patient Temp Arterial 39.9 MMHG; PH Patient Temp Arterial 7.426; Patient Temperature 37 CELCIUS; Potassium Heart/CVR 4.3 MMOL/L (3.5-5.1); Sodium Heart/CVR 138 MMOL/L (135-145)
[2017-09-12 08:16] LABS: Apearance,Urine CLEAR (Clear); Bacteria,Urine Occasional /HPF (Few); Bilirubin,Urine Negative (Negative); Blood, Urine Small mg/dL (Negative); Glucose,Urine (UA) Negative (Negative); Ketones,Urine Negative (Negative); Mucus,Urine Occasional /LPF (Occasional); Nitrite,Urine Negative (Negative); Protein,Urine Negative; RBC,Urine <1 /HPF (0-4); Urine Color Straw (Yellow); Urine Specific Gravity 1.004 (1.001-1.035); Urine Urobilinogen < 2.0 EU/DL (0.2-1.0); WBC,Urine <1 /HPF (0-6)
[2017-09-12] MEDS: ASPIRIN CHEW 81 MG TABLET PO SCH (08:40)
[2017-09-12] MEDS: ATORVASTATIN 20 MG TABLET PO SCH (08:41)
[2017-09-12] MEDS: CHLORHEXIDINE 0.12% ORAL RINSE 60 ML BOTTLE SWISH/SPIT SCH ×2 (08:41→21:06)
[2017-09-12] MEDS: PANTOPRAZOLE 40 MG TABLET PO SCH (08:41)
[2017-09-12] MEDS: amLODIPine 5 MG TABLET PO SCH (08:41)
[2017-09-12 09:41] LABS: Hematocrit Heart Surgery 21.8 PERCENT (37-47); PCO2 Patient Temp Venous 30.9 MM HG; PH Patient Temp Venous 7.529; PO2 Patient Temp Venous 37.5 MM HG; Potassium Heart/CVR 4.7 MMOL/L (3.5-5.1); VBG Base Excess 3.3 MEQ/L (0-4); VBG HCO3 27.3 MEQ/L (24-28); VBG Oxygen Saturation 84.7 %; VBG PCO2 35.7 MMHG (41-51); VBG PH 7.484; VBG PO2 46.1 MMHG (17-40)
[2017-09-12 10:08] LABS: Hematocrit Heart Surgery 21.5 PERCENT (37-47); Hemoglobin Heart Surgery 6.9 G/DL (12.0-16.0); PCO2 Patient Temp Venous 34.7 MM HG; PH Patient Temp Venous 7.492; VBG Base Excess 3.2 MEQ/L (0-4); VBG PCO2 34.7 MMHG (41-51); VBG PH 7.492
[2017-09-12 10:48] LABS: ABG Base Excess 0.8 MMOL/L (-2.5-2.5); ABG HCO3 25.1 MMOL/L (20-26); ABG PCO2 37.2 MM HG (35-48); ABG PH 7.433 (7.35-7.45); ABG TCO2 23.2 MMOL/L (23-27); Glucose Heart Surgery 189 MG/DL (74-106); Hematocrit Heart Surgery 24.5 PERCENT (37-47); Hemoglobin Heart Surgery 7.9 G/DL (12.0-16.0); Ionized Calcium Arterial 1.29 MMOL/L (1.21-1.46); PCO2 Patient Temp Arterial 37.2 MMHG; PH Patient Temp Arterial 7.433; Patient Temperature 37 CELCIUS; Potassium Heart/CVR 4.2 MMOL/L (3.5-5.1); Sodium Heart/CVR 136 MMOL/L (135-145)
[2017-09-12] MEDS ORDERED: THROMBIN TOPICAL (RECOMBINANT) 5,000 UNIT VIAL TOP ONE (10:58)
[2017-09-12] MEDS ORDERED: HEPARIN 10,000 UNIT/10 ML VIAL ONE (10:59)
[2017-09-12] MEDS ORDERED: ALBUMIN 25% 25 GM/100 ML VIAL IV ONE (10:59)
[2017-09-12] MEDS ORDERED: DEXTROSE 5% KCL 20 MEQ 20 MEQ/1,000 ML BAG IV ONE (10:59)
[2017-09-12] MEDS ORDERED: PROTAMINE SULFATE 250 MG/25 ML VIAL IV ONE (10:59)
[2017-09-12] MEDS ORDERED: MAGNESIUM SULFATE 1 GM/2 ML VIAL ONE (10:59)
[2017-09-12] MEDS ORDERED: SODIUM BICARBONATE 50 MEQ/50 ML SYRINGE IV ONE (10:59)
[2017-09-12] MEDS ORDERED: methylPREDNISolone SOD SUC 1,000 MG/8 ML VIAL ONE (10:59)
[2017-09-12] MEDS ORDERED: FUROSEMIDE 20 MG/2 ML VIAL ONE (11:00)
[2017-09-12] MEDS ORDERED: MANNITOL 12.5 GM/50 ML VIAL IV ONE (11:00)
[2017-09-12] MEDS ORDERED: SEVOFLURANE 1 UNIT/15 MINUTE INH ONE (11:44)
[2017-09-12] MEDS ORDERED: MAGNESIUM SULF RIDER 4 GM in PREMIX 1 EACH IV PRN (11:50)
[2017-09-12] MEDS ORDERED: ONDANSETRON 4 MG/2 ML VIAL IV PRN (11:50)
[2017-09-12] MEDS ORDERED: CALCIUM CHLORIDE 1,000 MG/10 ML SYRINGE IV PRN (11:50)
[2017-09-12] MEDS ORDERED: ACETAMINOPHEN 650 MG SUPP RECTAL PRN (11:50)
[2017-09-12] MEDS ORDERED: PHENYLEPHRINE DRIP 40 MG/250 ML PREMIX IV PRN (11:50)
[2017-09-12] MEDS ORDERED: INSULIN REGULAR 100 UNIT/ML IV PRN (11:50)
[2017-09-12] MEDS ORDERED: MORPHINE 10 MG/1 ML VIAL IV PRN (11:50)
[2017-09-12] MEDS ORDERED: INSULIN REGULAR 100 UNIT/ML IV ONE (11:50)
[2017-09-12] MEDS ORDERED: MAGNESIUM SULF RIDER 2 GM in PREMIX 1 EACH IV PRN (11:50)
[2017-09-12] MEDS ORDERED: MIDAZOLAM 2 MG/2 ML VIAL IV PRN (11:50)
[2017-09-12] MEDS ORDERED: NITROPRUSSIDE 100 MG in DEXTROSE 5% 250 ML IV PRN (11:50)
[2017-09-12] MEDS ORDERED: DEXTROSE 50% 25 GM/50 ML VIAL IV PRN ×2 (11:50)
[2017-09-12] MEDS ORDERED: VECURONIUM 10 MG VIAL IV PRN ×2 (11:50)
[2017-09-12] MEDS ORDERED: LACTATED RINGERS 250 ML IV PRN (11:50)
[2017-09-12] MEDS ORDERED: POTASSIUM CHLORIDE RIDER 10 MEQ in PREMIX 1 EACH IV PRN (11:50)
[2017-09-12] MEDS ORDERED: MIDAZOLAM 10 MG/2 ML VIAL IV PRN (11:50)
[2017-09-12 11:53] LABS: ABG Base Excess 0.3 MMOL/L (-2.5-2.5); ABG HCO3 24.7 MMOL/L (20-26); ABG Oxygen Saturation 99.8 % (95-100); ABG PCO2 42.1 MM HG (35-48); ABG PH 7.387 (7.35-7.45); ABG TCO2 23.5 MMOL/L (23-27); Glucose Heart Surgery 149 MG/DL (74-106); Hematocrit Heart Surgery 26.7 PERCENT (37-47); Hemoglobin Heart Surgery 8.6 G/DL (12.0-16.0); Potassium Heart/CVR 3.7 MMOL/L (3.5-5.1)
[2017-09-12 11:55] LABS: Basophils # 0.1 10*3/uL (0.0-0.2); Basophils % 0.5 % (0.0-0.8); Eosinophils # 0.3 10*3/uL (0.0-0.87); Hematocrit 26.1 VOL% (35.7-47.0); Hemoglobin 8.4 GM/DL (12.0-16.0); Immature Granulocytes % 1.3 %; Immature Granulocytes Absolute 0.13 #; Lymphocytes # 0.7 10*3/uL (1.4-4.0); Mean Corpuscular HGB Conc 32.2 GM/DL (32-36); Mean Corpuscular Hemoglobin 29 PG (27-34); Mean Corpuscular Volume 90.9 FL (87-102); Mean Platelet Volume 10.4 FL (9.6-12.0); Monocytes # 0.8 10*3/uL (0.11-0.8); Monocytes % 7.9 % (1.7-12.7); Neutrophils # 7.8 10*3/uL (1.4-7.4); Neutrophils % 80.3 % (38.7-73.9); Platelet Count 217 T/CUMM (130-400); Red Blood Count 2.87 MC/CUMM (3.8-5.5); Red Cell Distribution Width 13.8 % (9.3-17.3); White Blood Count 9.7 T/CUMM (4-12)
[2017-09-12] MEDS ORDERED: SODIUM CHLORIDE 0.45% 1,000 ML IV SCH ×2 (12:00)
[2017-09-12] MEDS ORDERED: INSULIN REGULAR DRIP 100 ML IV SCH (12:00)
[2017-09-12 12:01] LABS: INR 1.1; PT Patient Result 11.7 SECS; Partial Thromboplastin Time 27.1 SECS (0-40)
[2017-09-12] MEDS ORDERED: PROTAMINE SULFATE 50 MG/5 ML VIAL IV ONE (12:06)
[2017-09-12 12:31] LABS: Albumin 2.8 G/DL (3.4-5.0); Bilirubin,Total 0.7 MG/DL (0.2-1.0); Calcium 8.3 MG/DL (8.5-10.1); Osmolality,Calculated 288.1 MOS/KG (273-304); Potassium 3.9 MMOL/L (3.5-5.1); Total Protein 4.4 G/DL (6.4-8.3)
[2017-09-12] MEDS: POTASSIUM CHLORIDE RIDER 20 MEQ in PREMIX 1 EACH IV PRN ×2 (12:43→12:51)
[2017-09-12 12:47] LABS: CKMB % 12.7 %
[2017-09-12 12:49] LABS: Troponin I Only 2.77 NG/ML (0.00-0.045)
[2017-09-12] MEDS: SODIUM CHLORIDE 0.9% 1,000 ML IV SCH (13:08)
[2017-09-12] MEDS: KETOROLAC 15 MG/1 ML VIAL IV SCH ×3 (13:12→23:55)
[2017-09-12 13:45] LABS: ABG Base Excess -0.2 MMOL/L (-2.5-2.5); ABG HCO3 24.3 MMOL/L (20-26); ABG Oxygen Saturation 99.4 % (95-100); ABG PCO2 50.3 MM HG (35-48); ABG TCO2 23.5 MMOL/L (23-27); Glucose Heart Surgery 136 MG/DL (74-106); Hematocrit Heart Surgery 39.2 PERCENT (37-47); Hemoglobin Heart Surgery 12.8 G/DL (12.0-16.0)
[2017-09-12 14:40] LABS: ABG HCO3 25.3 MMOL/L (20-26); ABG Oxygen Saturation 98.5 % (95-100); ABG PCO2 39.5 MM HG (35-48); ABG PH 7.425 (7.35-7.45); ABG TCO2 26.5 MMOL/L (23-27); Glucose Heart Surgery 153 MG/DL (74-106); Hemoglobin Heart Surgery 13.7 G/DL (12.0-16.0)
[2017-09-12] MEDS: ALBUMIN 5% 12.5 GM in PREMIX 1 EACH IV PRN ×3 (14:47→17:31)
[2017-09-12] MEDS: MORPHINE 4 MG/1 ML VIAL IV PRN ×2 (15:42→23:54)
[2017-09-12] MEDS ORDERED: METOPROLOL TARTRATE 50 MG TABLET PO SCH (16:00)
[2017-09-12] MEDS: cloNIDine 0.1 MG TABLET PO SCH ×2 (16:01→21:51)
[2017-09-12] MEDS: INSULIN REGULAR 100 UNIT/ML SUBCUT SCH ×3 (16:11→23:54)
[2017-09-12 16:38] LABS: ABG Base Excess 0.8 MMOL/L (-2.5-2.5); ABG HCO3 26.1 MMOL/L (20-26); ABG Oxygen Saturation 98.9 % (95-100); ABG PCO2 44.7 MM HG (35-48); ABG PH 7.385 (7.35-7.45); ABG PO2 164.6 MM HG (80-95); ABG TCO2 27.5 MMOL/L (23-27); Glucose Heart Surgery 190 MG/DL (74-106); Hemoglobin Heart Surgery 13.1 G/DL (12.0-16.0); Potassium Heart/CVR 4.6 MMOL/L (3.5-5.1)
[2017-09-12] MEDS ORDERED: AMIODARONE INJ 150 MG in DEXTROSE 5% 100 ML IV ONE (17:47)
[2017-09-12 17:57] LABS: ABG Base Excess -0.6 MMOL/L (-2.5-2.5); ABG HCO3 25.2 MMOL/L (20-26); ABG Oxygen Saturation 94.2 % (95-100); ABG PCO2 45.8 MM HG (35-48); ABG PH 7.358 (7.35-7.45); ABG TCO2 26.6 MMOL/L (23-27); Glucose Heart Surgery 175 MG/DL (74-106); Hemoglobin Heart Surgery 13.1 G/DL (12.0-16.0); Potassium Heart/CVR 4.6 MMOL/L (3.5-5.1)
[2017-09-12] MEDS ORDERED: AMIODARONE INJ 450 MG in DEXTROSE 5% 241 ML IV SCH (18:00)
[2017-09-12 19:26] LABS: ABG Base Excess -1.6 MMOL/L (-2.5-2.5); ABG HCO3 24.3 MMOL/L (20-26); ABG Oxygen Saturation 98.6 % (95-100); ABG PCO2 45.7 MM HG (35-48); ABG PH 7.344 (7.35-7.45); ABG PO2 145.3 MM HG (80-95); ABG TCO2 25.7 MMOL/L (23-27); Glucose Heart Surgery 172 MG/DL (74-106); Hemoglobin Heart Surgery 12.8 G/DL (12.0-16.0); Potassium Heart/CVR 4.7 MMOL/L (3.5-5.1)
[2017-09-12] MEDS: CEFUROXIME INJ 1,500 MG in SYRINGE 1 EACH IV SCH (19:36)
[2017-09-12] MEDS ORDERED: FUROSEMIDE 40 MG/4 ML VIAL IV ONE (21:02)
[2017-09-12 21:17] LABS: CKMB % 13.2 %
[2017-09-12 21:19] LABS: Troponin I Only 6.2 NG/ML (0.00-0.045)
[2017-09-13] MEDS ORDERED: AMIODARONE INJ 450 MG in DEXTROSE 5% 241 ML IV SCH
[2017-09-13] MEDS: ALBUMIN 5% 12.5 GM in PREMIX 1 EACH IV PRN ×2 (00:01→01:11)
[2017-09-13 03:52] LABS: ABG Base Excess -0.4 MMOL/L (-2.5-2.5); ABG HCO3 26.4 MMOL/L (20-26); ABG Oxygen Saturation 98.6 % (95-100); ABG PCO2 52.5 MM HG (35-48); ABG PH 7.319 (7.35-7.45); ABG PO2 160.5 MM HG (80-95); Glucose Heart Surgery 143 MG/DL (74-106); Hemoglobin Heart Surgery 12.7 G/DL (12.0-16.0); Potassium Heart/CVR 4.5 MMOL/L (3.5-5.1)
[2017-09-13 03:57] LABS: Basophils # 0.1 10*3/uL (0.0-0.2); Basophils % 0.3 % (0.0-0.8); Immature Granulocytes % 0.8 %; Immature Granulocytes Absolute 0.16 #; Lymphocytes % 5.2 % (21.3-54.2); Mean Corpuscular HGB Conc 32.4 GM/DL (32-36); Mean Corpuscular Hemoglobin 30 PG (27-34); Mean Corpuscular Volume 91.6 FL (87-102); Mean Platelet Volume 10.5 FL (9.6-12.0); Monocytes % 5.5 % (1.7-12.7); Neutrophils # 16.8 10*3/uL (1.4-7.4); Neutrophils % 88.2 % (38.7-73.9); Platelet Count 207 T/CUMM (130-400); Red Blood Count 4.04 MC/CUMM (3.8-5.5); Red Cell Distribution Width 14.6 % (9.3-17.3); White Blood Count 19.1 T/CUMM (4-12)
[2017-09-13] MEDS: INSULIN REGULAR 100 UNIT/ML SUBCUT SCH ×2 (03:57→07:50)
[2017-09-13 04:25] LABS: Albumin 4.5 G/DL (3.4-5.0); Bilirubin,Direct 0.96 MG/DL (0.0-0.20); Bilirubin,Total 1.9 MG/DL (0.2-1.0); Calcium 8.5 MG/DL (8.5-10.1); Osmolality,Calculated 286.5 MOS/KG (273-304); Potassium 4.7 MMOL/L (3.5-5.1); Total Protein 6.1 G/DL (6.4-8.3)
[2017-09-13 04:26] LABS: CKMB % 14.3 %
[2017-09-13] MEDS: KETOROLAC 15 MG/1 ML VIAL IV SCH (05:43)
[2017-09-13] MEDS: MORPHINE 4 MG/1 ML VIAL IV PRN (06:17)
[2017-09-13] MEDS: cloNIDine 0.1 MG TABLET PO SCH ×3 (06:30→17:18)
[2017-09-13] MEDS: CEFUROXIME INJ 1,500 MG in SYRINGE 1 EACH IV SCH (07:30)
[2017-09-13] MEDS: CHLORHEXIDINE 0.12% ORAL RINSE 60 ML BOTTLE SWISH/SPIT SCH ×2 (09:30→21:07)
[2017-09-13] MEDS ORDERED: POTASSIUM CHLORIDE 20 MEQ TABLET PO PRN (10:35)
[2017-09-13] MEDS ORDERED: ZALEPLON 5 MG CAPSULE PO PRN (10:35)
[2017-09-13] MEDS ORDERED: ACETAMINOPHEN 325 MG TABLET PO PRN (10:35)
[2017-09-13] MEDS ORDERED: MAGNESIUM SULF RIDER 2 GM in PREMIX 1 EACH IV PRN (10:35)
[2017-09-13] MEDS ORDERED: ALUMINUM/MAGNES/SIMETH MAX STR 30 ML UDCUP PO PRN (10:35)
[2017-09-13] MEDS ORDERED: MAGNESIUM SULF RIDER 4 GM in PREMIX 1 EACH IV PRN (10:35)
[2017-09-13] MEDS ORDERED: SODIUM CHLOR 0.45% KCL 20 MEQ 20 MEQ/1,000 ML BAG IV SCH (10:35)
[2017-09-13] MEDS ORDERED: DEXTROSE 50% 25 GM/50 ML VIAL IV PRN ×2 (10:35)
[2017-09-13] MEDS ORDERED: ONDANSETRON 4 MG/2 ML VIAL IV PRN (10:35)
[2017-09-13] MEDS ORDERED: GLUCAGON 1 MG VIAL IM PRN ×2 (10:35)
[2017-09-13] MEDS: METOPROLOL SUCCINATE XL 25 MG TABLET PO SCH (11:15)
[2017-09-13] MEDS: KETOROLAC 15 MG/1 ML VIAL IV PRN ×2 (13:46→20:06)
[2017-09-13] MEDS: BENAZEPRIL 40 MG TABLET PO SCH (17:18)
[2017-09-13] MEDS: MAGNESIUM HYDROXIDE SUSP 30 ML UDCUP PO PRN (20:06)
[2017-09-13] MEDS ORDERED: cloNIDine 0.1 MG TABLET PO SCH (21:00)
[2017-09-13] MEDS: SENNA 8.6 MG TABLET PO SCH (21:01)
[2017-09-13] MEDS: SERTRALINE 25 MG TABLET PO SCH (22:11)
[2017-09-14] MEDS: KETOROLAC 15 MG/1 ML VIAL IV PRN ×4 (03:10→23:07)
[2017-09-14 04:47] LABS: Basophils % 0.2 % (0.0-0.8); Hematocrit 38.9 VOL% (35.7-47.0); Hemoglobin 12.7 GM/DL (12.0-16.0); Immature Granulocytes % 1.1 %; Immature Granulocytes Absolute 0.27 #; Lymphocytes # 1.1 10*3/uL (1.4-4.0); Lymphocytes % 4.4 % (21.3-54.2); Mean Corpuscular HGB Conc 32.6 GM/DL (32-36); Mean Corpuscular Hemoglobin 30 PG (27-34); Mean Corpuscular Volume 91.3 FL (87-102); Mean Platelet Volume 11.3 FL (9.6-12.0); Monocytes # 1.6 10*3/uL (0.11-0.8); Monocytes % 6.6 % (1.7-12.7); Neutrophils # 20.8 10*3/uL (1.4-7.4); Neutrophils % 87.7 % (38.7-73.9); Platelet Count 167 T/CUMM (130-400); Red Blood Count 4.26 MC/CUMM (3.8-5.5); Red Cell Distribution Width 14.5 % (9.3-17.3); White Blood Count 23.8 T/CUMM (4-12)
[2017-09-14] MEDS: cloNIDine 0.1 MG TABLET PO SCH ×2 (04:52→09:16)
[2017-09-14 05:24] LABS: Albumin 3.7 G/DL (3.4-5.0); Bilirubin,Direct 0.23 MG/DL (0.0-0.20); Bilirubin,Indirect 0.7 MG/DL (0.0-1.0); Bilirubin,Total 0.9 MG/DL (0.2-1.0); CKMB % 10.4 %; Calcium 8.2 MG/DL (8.5-10.1); Osmolality,Calculated 289.4 MOS/KG (273-304); Potassium 4.6 MMOL/L (3.5-5.1); Total Protein 5.8 G/DL (6.4-8.3)
[2017-09-14 05:25] LABS: Troponin I Only 5.26 NG/ML (0.00-0.045)
[2017-09-14 05:45] LABS: Band Neutrophils 3 % (0-10); Giant Platelets Few; Hypochromasia Slight; Lymphocytes 2 % (20-55); Ovalocytes Slight; Platelet Estimate Normal; Segmented Neutrophils 92 % (50-85); Total Cells Counted 100
[2017-09-14] MEDS ORDERED: FUROSEMIDE 40 MG/4 ML VIAL IV ONE (06:00)
[2017-09-14] MEDS: METOPROLOL SUCCINATE XL 25 MG TABLET PO SCH (09:12)
[2017-09-14] MEDS: PANTOPRAZOLE 40 MG TABLET PO SCH (09:13)
[2017-09-14] MEDS: ASPIRIN CHEW 81 MG TABLET PO SCH (09:13)
[2017-09-14] MEDS: ATORVASTATIN 20 MG TABLET PO SCH (09:14)
[2017-09-14] MEDS: DOCUSATE SODIUM 100 MG CAPSULE PO SCH (09:14)
[2017-09-14] MEDS: amLODIPine 5 MG TABLET PO SCH (09:15)
[2017-09-14] MEDS: FERROUS SULFATE 325 MG TABLET PO SCH (09:16)
[2017-09-14] MEDS: CHLORHEXIDINE 0.12% ORAL RINSE 60 ML BOTTLE SWISH/SPIT SCH ×2 (09:20→21:34)
[2017-09-14] MEDS ORDERED: cloNIDine 0.1 MG TABLET PO ONE (12:11)
[2017-09-14] MEDS ORDERED: METOPROLOL TARTRATE 50 MG TABLET PO SCH (12:30)
[2017-09-14] MEDS: MAGNESIUM HYDROXIDE SUSP 30 ML UDCUP PO PRN (19:21)
[2017-09-14] MEDS: CARVEDILOL 3.125 MG TABLET PO SCH (21:33)
[2017-09-14] MEDS: BENAZEPRIL 40 MG TABLET PO SCH (21:33)
[2017-09-14] MEDS: SENNA 8.6 MG TABLET PO SCH (21:33)
[2017-09-14] MEDS: SERTRALINE 25 MG TABLET PO SCH (21:35)
[2017-09-15 06:22] LABS: Basophils % 0.1 % (0.0-0.8); Hematocrit 32.2 VOL% (35.7-47.0); Hemoglobin 10.7 GM/DL (12.0-16.0); Immature Granulocytes % 1.5 %; Immature Granulocytes Absolute 0.29 #; Lymphocytes # 1.3 10*3/uL (1.4-4.0); Lymphocytes % 6.5 % (21.3-54.2); Mean Corpuscular HGB Conc 33.2 GM/DL (32-36); Mean Corpuscular Hemoglobin 30 PG (27-34); Mean Corpuscular Volume 89.7 FL (87-102); Mean Platelet Volume 11.6 FL (9.6-12.0); Monocytes # 1.6 10*3/uL (0.11-0.8); Monocytes % 8.2 % (1.7-12.7); Neutrophils # 16.5 10*3/uL (1.4-7.4); Neutrophils % 83.7 % (38.7-73.9); Platelet Count 191 T/CUMM (130-400); Red Blood Count 3.59 MC/CUMM (3.8-5.5); Red Cell Distribution Width 14.2 % (9.3-17.3); White Blood Count 19.7 T/CUMM (4-12)
[2017-09-15 07:05] LABS: Albumin 3.3 G/DL (3.4-5.0); Bilirubin,Direct 0.16 MG/DL (0.0-0.20); Bilirubin,Indirect 0.7 MG/DL (0.0-1.0); Bilirubin,Total 0.9 MG/DL (0.2-1.0); CKMB % 5.5 %; Calcium 8.4 MG/DL (8.5-10.1); Osmolality,Calculated 289.4 MOS/KG (273-304); Potassium 4.7 MMOL/L (3.5-5.1); Total Protein 5.5 G/DL (6.4-8.3)
[2017-09-15 07:11] LABS: Troponin I Only 3.48 NG/ML (0.00-0.045)
[2017-09-15] MEDS: ASPIRIN CHEW 81 MG TABLET PO SCH (10:10)
[2017-09-15] MEDS: CARVEDILOL 3.125 MG TABLET PO SCH ×2 (10:10→21:55)
[2017-09-15] MEDS: ATORVASTATIN 20 MG TABLET PO SCH (10:10)
[2017-09-15] MEDS: amLODIPine 5 MG TABLET PO SCH (10:10)
[2017-09-15] MEDS: FERROUS SULFATE 325 MG TABLET PO SCH (10:10)
[2017-09-15] MEDS: DOCUSATE SODIUM 100 MG CAPSULE PO SCH (10:10)
[2017-09-15] MEDS: CHLORHEXIDINE 0.12% ORAL RINSE 60 ML BOTTLE SWISH/SPIT SCH ×2 (10:15→21:56)
[2017-09-15] MEDS: PANTOPRAZOLE 40 MG TABLET PO SCH (10:15)
[2017-09-15] MEDS: MAGNESIUM CITRATE 300 ML BOTTLE PO PRN ×2 (11:27→15:21)
[2017-09-15] MEDS: KETOROLAC 15 MG/1 ML VIAL IV PRN ×2 (14:57→21:55)
[2017-09-15] MEDS: BENAZEPRIL 40 MG TABLET PO SCH (21:55)
[2017-09-15] MEDS: SENNA 8.6 MG TABLET PO SCH (21:55)
[2017-09-15] MEDS: SERTRALINE 25 MG TABLET PO SCH (21:56)
[2017-09-16] MEDS ORDERED: KETOROLAC 15 MG/1 ML VIAL IV PRN (09:05)
[2017-09-16] MEDS: ASPIRIN CHEW 81 MG TABLET PO SCH (09:38)
[2017-09-16] MEDS: ATORVASTATIN 20 MG TABLET PO SCH (09:38)
[2017-09-16] MEDS: PANTOPRAZOLE 40 MG TABLET PO SCH (09:39)
[2017-09-16] MEDS: amLODIPine 5 MG TABLET PO SCH (09:39)
[2017-09-16] MEDS: DOCUSATE SODIUM 100 MG CAPSULE PO SCH (09:39)
[2017-09-16] MEDS: CHLORHEXIDINE 0.12% ORAL RINSE 60 ML BOTTLE SWISH/SPIT SCH ×2 (09:39→21:41)
[2017-09-16] MEDS: CARVEDILOL 3.125 MG TABLET PO SCH ×2 (09:39→21:42)
[2017-09-16] MEDS: FERROUS SULFATE 325 MG TABLET PO SCH (09:42)
[2017-09-16] MEDS: BENAZEPRIL 40 MG TABLET PO SCH (21:42)
[2017-09-16] MEDS: oxyCODONE/ACETAMINOPHEN 5-325 MG TABLET PO PRN (21:42)
[2017-09-16] MEDS: SENNA 8.6 MG TABLET PO SCH (21:42)
[2017-09-16] MEDS: SERTRALINE 25 MG TABLET PO SCH (21:43)
[2017-09-17 05:54] LABS: Basophils % 0.3 % (0.0-0.8); Eosinophils # 0.3 10*3/uL (0.0-0.87); Hematocrit 35.8 VOL% (35.7-47.0); Hemoglobin 11.9 GM/DL (12.0-16.0); Immature Granulocytes % 0.8 %; Immature Granulocytes Absolute 0.11 #; Lymphocytes # 1.8 10*3/uL (1.4-4.0); Lymphocytes % 12.6 % (21.3-54.2); Mean Corpuscular HGB Conc 33.2 GM/DL (32-36); Mean Corpuscular Hemoglobin 30 PG (27-34); Mean Corpuscular Volume 90.4 FL (87-102); Mean Platelet Volume 10.8 FL (9.6-12.0); Monocytes # 1.3 10*3/uL (0.11-0.8); Monocytes % 9.5 % (1.7-12.7); Neutrophils # 10.5 10*3/uL (1.4-7.4); Neutrophils % 74.8 % (38.7-73.9); Platelet Count 232 T/CUMM (130-400); Red Blood Count 3.96 MC/CUMM (3.8-5.5); Red Cell Distribution Width 13.8 % (9.3-17.3); White Blood Count 14.1 T/CUMM (4-12)
[2017-09-17 06:28] LABS: Calcium 8.8 MG/DL (8.5-10.1); Osmolality,Calculated 283.4 MOS/KG (273-304); Potassium 5.3 MMOL/L (3.5-5.1)
[2017-09-17 06:33] LABS: Alanine Aminotransferase 28 U/L (13-56); Albumin 3.1 G/DL (3.4-5.0); Alkaline Phosphatase 85 U/L (45-117); Aspartate Amino Transferase 24 U/L (0-37); Bilirubin,Indirect 0.8 MG/DL (0.0-1.0); Blood Urea Nitrogen 27 MG/DL (7-18); Calcium 8.6 MG/DL (8.5-10.1); Glucose 104 MG/DL (74-106); Osmolality,Calculated 281.5 MOS/KG (273-304); Sodium 139 MMOL/L (136-145); Total Protein 5.4 G/DL (6.4-8.3)
[2017-09-17] MEDS: ASPIRIN CHEW 81 MG TABLET PO SCH (09:15)
[2017-09-17] MEDS: ATORVASTATIN 20 MG TABLET PO SCH (09:15)
[2017-09-17] MEDS: DOCUSATE SODIUM 100 MG CAPSULE PO SCH (09:15)
[2017-09-17] MEDS: FERROUS SULFATE 325 MG TABLET PO SCH (09:15)
[2017-09-17] MEDS: CARVEDILOL 3.125 MG TABLET PO SCH ×2 (09:16→21:50)
[2017-09-17] MEDS: PANTOPRAZOLE 40 MG TABLET PO SCH (09:16)
[2017-09-17] MEDS: CHLORHEXIDINE 0.12% ORAL RINSE 60 ML BOTTLE SWISH/SPIT SCH ×2 (09:16→21:53)
[2017-09-17] MEDS: amLODIPine 5 MG TABLET PO SCH (09:16)
[2017-09-17] MEDS: MAGNESIUM CITRATE 300 ML BOTTLE PO PRN (09:30)
[2017-09-17] MEDS: SENNA 8.6 MG TABLET PO SCH (21:51)
[2017-09-17] MEDS: SERTRALINE 25 MG TABLET PO SCH (21:53)
[2017-09-17] MEDS: BENAZEPRIL 40 MG TABLET PO SCH (21:54)
[2017-09-17] MEDS: KETOROLAC 10 MG TABLET PO PRN (23:14)
[2017-09-18] MEDS: CLORAZEPATE 3.75 MG TABLET PO PRN (03:26)
[2017-09-18 04:53] LABS: Basophils # 0.1 10*3/uL (0.0-0.2); Basophils % 0.5 % (0.0-0.8); Eosinophils # 0.6 10*3/uL (0.0-0.87); Eosinophils % 3.9 % (0.00-10.9); Hematocrit 35.7 VOL% (35.7-47.0); Hemoglobin 11.9 GM/DL (12.0-16.0); Immature Granulocytes Absolute 0.15 #; Lymphocytes # 1.5 10*3/uL (1.4-4.0); Lymphocytes % 10.2 % (21.3-54.2); Mean Corpuscular HGB Conc 33.3 GM/DL (32-36); Mean Corpuscular Hemoglobin 30 PG (27-34); Mean Corpuscular Volume 89.9 FL (87-102); Mean Platelet Volume 10.6 FL (9.6-12.0); Monocytes # 1.6 10*3/uL (0.11-0.8); Monocytes % 10.6 % (1.7-12.7); Neutrophils # 10.9 10*3/uL (1.4-7.4); Neutrophils % 73.8 % (38.7-73.9); Platelet Count 250 T/CUMM (130-400); Red Blood Count 3.97 MC/CUMM (3.8-5.5); Red Cell Distribution Width 13.5 % (9.3-17.3); White Blood Count 14.8 T/CUMM (4-12)
[2017-09-18 05:28] LABS: Alanine Aminotransferase 24 U/L (13-56); Alkaline Phosphatase 81 U/L (45-117); Aspartate Amino Transferase 15 U/L (0-37); Blood Urea Nitrogen 28 MG/DL (7-18); Calcium 8.7 MG/DL (8.5-10.1); Glucose 101 MG/DL (74-106); Osmolality,Calculated 286.3 MOS/KG (273-304); Potassium 4.5 MMOL/L (3.5-5.1); Sodium 141 MMOL/L (136-145)
[2017-09-18] MEDS: ATORVASTATIN 20 MG TABLET PO SCH (08:45)
[2017-09-18] MEDS: FERROUS SULFATE 325 MG TABLET PO SCH (08:45)
[2017-09-18] MEDS: CHLORHEXIDINE 0.12% ORAL RINSE 60 ML BOTTLE SWISH/SPIT SCH ×2 (08:46→21:09)
[2017-09-18] MEDS: ASPIRIN CHEW 81 MG TABLET PO SCH (08:46)
[2017-09-18] MEDS: DOCUSATE SODIUM 100 MG CAPSULE PO SCH (08:46)
[2017-09-18] MEDS: amLODIPine 5 MG TABLET PO SCH (08:46)
[2017-09-18] MEDS: PANTOPRAZOLE 40 MG TABLET PO SCH (08:46)
[2017-09-18] MEDS: CARVEDILOL 3.125 MG TABLET PO SCH ×2 (08:50→21:10)
[2017-09-18] MEDS ORDERED: LIDOCAINE 100 MG/5 ML SYRINGE ONE (09:27)
[2017-09-18] MEDS: oxyCODONE/ACETAMINOPHEN 5-325 MG TABLET PO PRN ×3 (09:34→21:11)
[2017-09-18] MEDS: KETOROLAC 10 MG TABLET PO PRN ×2 (17:48→23:50)
[2017-09-18] MEDS: BENAZEPRIL 40 MG TABLET PO SCH (21:10)
[2017-09-18] MEDS: SENNA 8.6 MG TABLET PO SCH (21:10)
[2017-09-18] MEDS: SERTRALINE 25 MG TABLET PO SCH (21:12)
[2017-09-19] MEDS: oxyCODONE/ACETAMINOPHEN 5-325 MG TABLET PO PRN ×4 (02:38→22:03)
[2017-09-19] MEDS: KETOROLAC 10 MG TABLET PO PRN ×2 (04:50→20:21)
[2017-09-19] MEDS: DOCUSATE SODIUM 100 MG CAPSULE PO SCH (08:18)
[2017-09-19] MEDS: amLODIPine 5 MG TABLET PO SCH (08:18)
[2017-09-19] MEDS: CARVEDILOL 3.125 MG TABLET PO SCH ×2 (08:18→21:14)
[2017-09-19] MEDS: PANTOPRAZOLE 40 MG TABLET PO SCH (08:18)
[2017-09-19] MEDS: FERROUS SULFATE 325 MG TABLET PO SCH (08:18)
[2017-09-19] MEDS: ATORVASTATIN 20 MG TABLET PO SCH (08:18)
[2017-09-19] MEDS: ASPIRIN CHEW 81 MG TABLET PO SCH (08:18)
[2017-09-19] MEDS: CLORAZEPATE 3.75 MG TABLET PO PRN ×2 (08:22→22:03)
[2017-09-19] MEDS: CHLORHEXIDINE 0.12% ORAL RINSE 60 ML BOTTLE SWISH/SPIT SCH ×2 (09:37→21:14)
[2017-09-19] MEDS ORDERED: MAGNESIUM HYDROXIDE SUSP 30 ML UDCUP PO ONE (14:59)
[2017-09-19] MEDS: SENNA 8.6 MG TABLET PO SCH (21:13)
[2017-09-19] MEDS: BENAZEPRIL 40 MG TABLET PO SCH (21:14)
[2017-09-19] MEDS: SERTRALINE 25 MG TABLET PO SCH (21:15)
[2017-09-20 03:29] LABS: Basophils # 0.1 10*3/uL (0.0-0.2); Basophils % 0.7 % (0.0-0.8); Eosinophils # 0.8 10*3/uL (0.0-0.87); Eosinophils % 5.8 % (0.00-10.9); Hematocrit 37.4 VOL% (35.7-47.0); Hemoglobin 11.8 GM/DL (12.0-16.0); Immature Granulocytes % 0.9 %; Immature Granulocytes Absolute 0.13 #; Lymphocytes # 1.9 10*3/uL (1.4-4.0); Lymphocytes % 12.9 % (21.3-54.2); Mean Corpuscular HGB Conc 31.6 GM/DL (32-36); Mean Corpuscular Hemoglobin 29 PG (27-34); Mean Corpuscular Volume 92.3 FL (87-102); Mean Platelet Volume 10.4 FL (9.6-12.0); Monocytes # 1.2 10*3/uL (0.11-0.8); Monocytes % 8.2 % (1.7-12.7); Neutrophils # 10.3 10*3/uL (1.4-7.4); Neutrophils % 71.5 % (38.7-73.9); Platelet Count 327 T/CUMM (130-400); Red Blood Count 4.05 MC/CUMM (3.8-5.5); Red Cell Distribution Width 13.4 % (9.3-17.3); White Blood Count 14.5 T/CUMM (4-12)
[2017-09-20 03:52] LABS: Calcium 8.9 MG/DL (8.5-10.1); Osmolality,Calculated 279.7 MOS/KG (273-304); Potassium 4.3 MMOL/L (3.5-5.1)
[2017-09-20] MEDS: ASPIRIN CHEW 81 MG TABLET PO SCH (08:48)
[2017-09-20] MEDS: CARVEDILOL 3.125 MG TABLET PO SCH ×2 (08:49→21:05)
[2017-09-20] MEDS: DOCUSATE SODIUM 100 MG CAPSULE PO SCH (08:49)
[2017-09-20] MEDS: ATORVASTATIN 20 MG TABLET PO SCH (08:49)
[2017-09-20] MEDS: amLODIPine 5 MG TABLET PO SCH (08:50)
[2017-09-20] MEDS: PANTOPRAZOLE 40 MG TABLET PO SCH (08:50)
[2017-09-20] MEDS: FERROUS SULFATE 325 MG TABLET PO SCH (08:50)
[2017-09-20] MEDS: CHLORHEXIDINE 0.12% ORAL RINSE 60 ML BOTTLE SWISH/SPIT SCH ×2 (08:51→21:05)
[2017-09-20] MEDS: oxyCODONE/ACETAMINOPHEN 5-325 MG TABLET PO PRN ×2 (10:15→21:04)
[2017-09-20] MEDS ORDERED: NITROGLYCERIN SL 0.4 MG TABLET SL PRN (15:27)
[2017-09-20] MEDS: MAGNESIUM HYDROXIDE SUSP 30 ML UDCUP PO PRN (21:03)
[2017-09-20] MEDS: CLORAZEPATE 3.75 MG TABLET PO PRN (21:04)
[2017-09-20] MEDS: SENNA 8.6 MG TABLET PO SCH (21:05)
[2017-09-20] MEDS: BENAZEPRIL 40 MG TABLET PO SCH (21:07)
[2017-09-20] MEDS: SERTRALINE 25 MG TABLET PO SCH (21:07)
[2017-09-21 04:47] LABS: Basophils # 0.1 10*3/uL (0.0-0.2); Basophils % 0.5 % (0.0-0.8); Eosinophils # 0.7 10*3/uL (0.0-0.87); Eosinophils % 5.6 % (0.00-10.9); Hematocrit 31.9 VOL% (35.7-47.0); Hemoglobin 10.5 GM/DL (12.0-16.0); Immature Granulocytes % 0.7 %; Immature Granulocytes Absolute 0.08 #; Lymphocytes # 1.6 10*3/uL (1.4-4.0); Lymphocytes % 13.1 % (21.3-54.2); Mean Corpuscular HGB Conc 32.9 GM/DL (32-36); Mean Corpuscular Hemoglobin 30 PG (27-34); Mean Corpuscular Volume 90.4 FL (87-102); Mean Platelet Volume 10.5 FL (9.6-12.0); Monocytes # 1.3 10*3/uL (0.11-0.8); Monocytes % 10.8 % (1.7-12.7); Neutrophils # 8.2 10*3/uL (1.4-7.4); Neutrophils % 69.3 % (38.7-73.9); Platelet Count 317 T/CUMM (130-400); Red Blood Count 3.53 MC/CUMM (3.8-5.5); Red Cell Distribution Width 13.6 % (9.3-17.3); White Blood Count 11.9 T/CUMM (4-12)
[2017-09-21 05:33] LABS: Calcium 8.2 MG/DL (8.5-10.1); Osmolality,Calculated 279.5 MOS/KG (273-304); Potassium 4.4 MMOL/L (3.5-5.1)
[2017-09-21] MEDS: DOCUSATE SODIUM 100 MG CAPSULE PO SCH (08:41)
[2017-09-21] MEDS: CARVEDILOL 3.125 MG TABLET PO SCH ×2 (08:42→22:14)
[2017-09-21] MEDS: ATORVASTATIN 40 MG TABLET PO SCH (08:42)
[2017-09-21] MEDS: amLODIPine 5 MG TABLET PO SCH (08:42)
[2017-09-21] MEDS: FERROUS SULFATE 325 MG TABLET PO SCH (08:42)
[2017-09-21] MEDS: PANTOPRAZOLE 40 MG TABLET PO SCH (08:42)
[2017-09-21] MEDS: ASPIRIN CHEW 81 MG TABLET PO SCH (08:42)
[2017-09-21] MEDS: CLORAZEPATE 3.75 MG TABLET PO PRN ×2 (08:49→22:14)
[2017-09-21] MEDS: CHLORHEXIDINE 0.12% ORAL RINSE 60 ML BOTTLE SWISH/SPIT SCH ×2 (08:49→22:15)
[2017-09-21] MEDS: oxyCODONE/ACETAMINOPHEN 5-325 MG TABLET PO PRN (13:45)
[2017-09-21] MEDS: SENNA 8.6 MG TABLET PO SCH (22:13)
[2017-09-21] MEDS: BENAZEPRIL 40 MG TABLET PO SCH (22:13)
[2017-09-21] MEDS: SERTRALINE 25 MG TABLET PO SCH (22:14)
[2017-09-21] MEDS: MAGNESIUM HYDROXIDE SUSP 30 ML UDCUP PO PRN (22:14)
[2017-09-22 04:13] LABS: Basophils # 0.1 10*3/uL (0.0-0.2); Basophils % 0.7 % (0.0-0.8); Eosinophils # 0.6 10*3/uL (0.0-0.87); Hematocrit 33.5 VOL% (35.7-47.0); Hemoglobin 10.7 GM/DL (12.0-16.0); Immature Granulocytes % 0.8 %; Immature Granulocytes Absolute 0.09 #; Lymphocytes # 1.6 10*3/uL (1.4-4.0); Lymphocytes % 15.2 % (21.3-54.2); Mean Corpuscular HGB Conc 31.9 GM/DL (32-36); Mean Corpuscular Hemoglobin 30 PG (27-34); Mean Corpuscular Volume 92.3 FL (87-102); Mean Platelet Volume 10.2 FL (9.6-12.0); Monocytes # 1.2 10*3/uL (0.11-0.8); Monocytes % 10.9 % (1.7-12.7); Neutrophils # 7.1 10*3/uL (1.4-7.4); Neutrophils % 66.4 % (38.7-73.9); Platelet Count 329 T/CUMM (130-400); Red Blood Count 3.63 MC/CUMM (3.8-5.5); Red Cell Distribution Width 13.6 % (9.3-17.3); White Blood Count 10.6 T/CUMM (4-12)
[2017-09-22 04:41] LABS: Calcium 8.3 MG/DL (8.5-10.1); Osmolality,Calculated 284.3 MOS/KG (273-304); Potassium 4.6 MMOL/L (3.5-5.1)
[2017-09-22] MEDS: ATORVASTATIN 40 MG TABLET PO SCH (08:36)
[2017-09-22] MEDS: DOCUSATE SODIUM 100 MG CAPSULE PO SCH (08:37)
[2017-09-22] MEDS: FERROUS SULFATE 325 MG TABLET PO SCH (08:37)
[2017-09-22] MEDS: amLODIPine 5 MG TABLET PO SCH (08:37)
[2017-09-22] MEDS: CARVEDILOL 3.125 MG TABLET PO SCH ×2 (08:38→20:33)
[2017-09-22] MEDS: ASPIRIN CHEW 81 MG TABLET PO SCH (08:38)
[2017-09-22] MEDS: PANTOPRAZOLE 40 MG TABLET PO SCH (08:41)
[2017-09-22] MEDS: CHLORHEXIDINE 0.12% ORAL RINSE 60 ML BOTTLE SWISH/SPIT SCH ×2 (08:41→20:39)
[2017-09-22] MEDS: SENNA 8.6 MG TABLET PO SCH (20:33)
[2017-09-22] MEDS: oxyCODONE/ACETAMINOPHEN 5-325 MG TABLET PO PRN (20:36)
[2017-09-22] MEDS: MAGNESIUM HYDROXIDE SUSP 30 ML UDCUP PO PRN (20:36)
[2017-09-22] MEDS: BENAZEPRIL 40 MG TABLET PO SCH (20:55)
[2017-09-22] MEDS: SERTRALINE 25 MG TABLET PO SCH (20:55)
[2017-09-23 04:36] LABS: Basophils # 0.1 10*3/uL (0.0-0.2); Basophils % 0.7 % (0.0-0.8); Eosinophils # 0.6 10*3/uL (0.0-0.87); Eosinophils % 6.3 % (0.00-10.9); Hematocrit 30.5 VOL% (35.7-47.0); Hemoglobin 10.2 GM/DL (12.0-16.0); Immature Granulocytes % 0.7 %; Immature Granulocytes Absolute 0.07 #; Lymphocytes # 1.6 10*3/uL (1.4-4.0); Lymphocytes % 16.3 % (21.3-54.2); Mean Corpuscular HGB Conc 33.4 GM/DL (32-36); Mean Corpuscular Hemoglobin 30 PG (27-34); Mean Corpuscular Volume 90.8 FL (87-102); Mean Platelet Volume 10.2 FL (9.6-12.0); Monocytes % 10.2 % (1.7-12.7); Neutrophils # 6.6 10*3/uL (1.4-7.4); Neutrophils % 65.8 % (38.7-73.9); Platelet Count 316 T/CUMM (130-400); Red Blood Count 3.36 MC/CUMM (3.8-5.5); Red Cell Distribution Width 13.8 % (9.3-17.3)
[2017-09-23 04:55] LABS: Calcium 8.4 MG/DL (8.5-10.1); Osmolality,Calculated 286.1 MOS/KG (273-304); Potassium 4.4 MMOL/L (3.5-5.1)
[2017-09-23] MEDS: FERROUS SULFATE 325 MG TABLET PO SCH (09:20)
[2017-09-23] MEDS: ASPIRIN CHEW 81 MG TABLET PO SCH (09:21)
[2017-09-23] MEDS: ATORVASTATIN 40 MG TABLET PO SCH (09:21)
[2017-09-23] MEDS: CHLORHEXIDINE 0.12% ORAL RINSE 60 ML BOTTLE SWISH/SPIT SCH (09:21)
[2017-09-23] MEDS: DOCUSATE SODIUM 100 MG CAPSULE PO SCH (09:21)
[2017-09-23] MEDS: CARVEDILOL 3.125 MG TABLET PO SCH (09:21)
[2017-09-23] MEDS: PANTOPRAZOLE 40 MG TABLET PO SCH (09:21)
[2017-09-23] MEDS: amLODIPine 5 MG TABLET PO SCH (09:21)
[2017-09-23 13:01] VITALS: BP 108/57
== END 2017-09-23 14:59 | disposition home health service (06) | DRG 236 ==
LOC: N.4E 08:46 → N.CVR 09-12 10:00 → N.TELES 09-13 12:46